=== PATIENT | male | born 1955 | race Caucasian/White ===

== ENCOUNTER 2016-10-18 20:17 | Inpatient (IN) | payer MEDICARE ==
[2016-10-18] MEDS ORDERED: Zithromax 500 MG/ 250 ML NaCl Premix 250 ML IV ONE ×2 (20:28→21:38)
[2016-10-18] MEDS ORDERED: ROCEPHIN 1 Gm-D5w 50 ml Bag** 50 ML IV ONE ×2 (20:28→20:57)
[2016-10-18] MEDS ORDERED: Sodium Chloride 0.9% 1000 ML 1,000 ML IV STA ×2 (20:28→20:41)
[2016-10-18] MEDS ORDERED: PROVENTIL 2.5 MG/3 ML NEB IH ONE ×2 (20:28→20:33)
[2016-10-18] MEDS ORDERED: TYLENOL 325 MG PO STA (20:31)
--- NOTE | 2016-10-18 20:40 | ERPHSYRPT ---
- History of Present Illness Time Seen by Provider: 10/18/16 20:25 Source: patient Exam Limitations: clinical condition Patient Subjective Stated Complaint: PT BROUGHT TO ED PER EMS FROM HOME-REPORTS INCREASED [id number] COUGH WITH GREEN SPUTUM-PT REPORTS CHRONIC BACK PAIN BUT DENIES ANY UNUSUAL PAIN Triage Nursing Assessment: PT PALE WARM ET DRY-WHEEZES NOTED-LABORED BREATHING NOTED-ABLE TO SPEAK IN SHORT SENTENCES-PT WAS 86 SPO2 UPON EMS ARRIVAL Physician History: PATIENT WITH HISTORY OF COPD, COMPLAINS OF FEVER, CHILLS, PRODUCTIVE COUGH YELLOW SPUTUM, DIFFICULTY BREATHING AND MARKED EXERTIONAL DYSPNEA. ALSO HAS MID BACK PAIN. EMS STATES HIS PULSE OXIMETRY 88%. Timing/Duration: day(s) Activities at Onset: none Severity of Dyspnea-Max: severe Severity of Dyspnea-Current: severe Possible Cause: occasional episodes Modifying Factors: Improves With: activity, coughing, oxygen Associated Symptoms: constant, cough, productive cough International travel in last 2 weeks: No Allergies/Adverse Reactions: No Known Drug Allergies Allergy (Unverified 10/18/16 20:29) Home Medications: Albuterol 8 gm Mdi Hfa [Ventolin Hfa MDI] 8 gm IH DAILY 10/18/16 [History] Hydrocodone/APAP 10/325 mg [[place] 10/325 MG Tablet] 1 tab PO Q4HPRN PRN [History] Lisinopril/Hydrochlorothiazide [Lisinopril-Hctz 10-12.5 mg Tab] 1 each PO DAILY 10/18/16 [History] Meclizine HCl 25 mg [Antivert 25 mg] 25 mg PO [id number] PRN 10/18/16 [ History] Hx Tetanus, Diphtheria Vaccination/Date Given: No Hx Influenza Vaccination/Date Given: No Hx Pneumococcal Vaccination/Date Given: No Immunizations Up to Date: Yes - Review of Systems Constitutional: No Fever, No Chills Eyes: No Symptoms Ears, Nose, & Throat: No Symptoms Respiratory: Cough, Dyspnea Cardiac: No Symptoms, No Chest Pain, No Edema, No Syncope Abdominal/Gastrointestinal: No Symptoms, No Abdominal Pain, No Nausea, No Vomiting, No Diarrhea Genitourinary Symptoms: No Symptoms, No Dysuria Musculoskeletal: No Symptoms, No Back Pain, No Neck Pain Skin: No Symptoms, No Rash Neurological: No Dizziness, No Focal Weakness, No Sensory Changes Psychological: No Symptoms Endocrine: No Symptoms All Other Systems: Reviewed and Negative - Past Medical History Pertinent Past Medical History: Yes Respiratory History: COPD Other Medical History: BACK PAIN - Past Surgical History Past Surgical History: No - Social History Smoking Status: Former smoker Drug Use: none Patient Lives Alone: Yes - Nursing Vital Signs Nursing Vital Signs: Initial Vital Signs Temperature 97.7 F Temperature Source Oral Pulse Rate 83 Respiratory Rate 24 Blood Pressure [Right Arm] 129/68 Pain Intensity 5 - Physical Exam General Appearance: no apparent distress, mild distress, alert Eye Exam: PERRL/EOMI Ears, Nose, Throat Exam: hearing grossly normal Neck Exam: normal inspection, supple Respiratory Exam: diminished breath sounds, wheezing Cardiovascular/Chest Exam: normal heart sounds, regular rate/rhythm Abdominal/Gastrointestinal Exam: soft, No tenderness, No distention, No mass Extremity Exam: non-tender, normal range of motion, normal inspection, no calf tenderness, no pedal edema Peripheral Pulses Exam: carotid (R): 2+, carotid (L): 2+, femoral (R): 2+, femoral (L): 2+, dorsalis-pedis (R): 2+, dorsalis-pedis (L): 2+ Neurologic Exam: alert, oriented x 3, cooperative, reporting lead II-XII nml as tested, sensation nml, No motor deficits Skin Exam: normal color, warm, No dry SpO2 Interpretation: normal SpO2: 98 Oxygen Delivery: Room Air - Course EKG Interpreted by Me: RATE, Sinus Rhythm, Sinus Tach, Right [place] Deviation - Radiology Exams Chest X-ray Interpretation: Interpreted by me (RIGHT MIDDLE/LOWER LOBE INFILTRATES) - CT Exams Chest CT Interpretation: Tele-radiologist Report (NEGATIVE FOR PULMONARY EMBOLISM, THERE IS DIFFUSE CENTRILOBULAR EMPHYSEMATOUS CHANGES, RIGHT MIDDLE AND BILATERAL LOWER LOBE RETICULAR -NODULAR DENSITIES) Ordered Tests: Medication Summary Discontinued Medications Generic Name Dose Route Start Last Admin Trade Name Eusebioq PRN Reason Stop Dose Admin Acetaminophen 650 mg 10/18/16 20:31 10/18/16 20:59 Tylenol 325 Mg PO 10/18/16 20:32 650 mg STAT STA Administration Acetaminophen Confirm 10/18/16 20:57 Tylenol 325 Mg Administered 10/18/16 20:58 Dose 650 mg .ROUTE .STK-MED ONE Acetaminophen 650 mg 10/18/16 23:02 Tylenol 325 Mg PO 11/17/16 23:01 Q4H PRN PRN PAIN AND/OR FEVER Acetaminophen/Hydrocodone Bitart 1 tab 10/19/16 09:16 10/20/16 19:32 [place] 10/325 Mg Tablet PO 10/24/16 09:15 1 tab Q4HPRN PRN Administration PAIN Albuterol Sulfate 10 mg 10/18/16 20:28 10/18/16 20:44 Proventil 2.5 Mg/3 Ml Neb IH 10/18/16 20:29 10 mg STAT ONE Administration Albuterol Sulfate Confirm 10/18/16 20:33 Proventil 2.5 Mg/3 Ml Neb Administered 10/18/16 20:34 Dose 10 mg IH .STK-MED ONE Albuterol/Ipratropium 3 ml 10/19/16 07:00 10/21/16 14:43 Duoneb 0.5-3 Mg/3 Ml Neb IH 11/18/16 06:59 3 ml Q4HRT ARMAAN Administration Lisinopril 10 mg/ 0 mg 10/19/16 10:00 10/21/16 10:31 Hydrochlorothiazide 12.5 mg PO 11/18/16 09:59 22.5 mg DAILY ARMAAN Administration Enoxaparin Sodium 40 mg 10/19/16 10:00 10/21/16 10:35 Enoxaparin Sodium SQ 11/18/16 09:59 40 mg DAILY ARMAAN Administration Famotidine 20 mg 10/19/16 10:00 10/21/16 10:31 Pepcid 20 Mg PO 11/18/16 09:59 20 mg BID ARMAAN Administration Azithromycin 250 mls @ 125 mls/hr 10/18/16 20:28 10/18/16 21:41 Zithromax 500 Mg/ 250 Ml Nacl Premix IV 10/18/16 22:27 125 mls/hr STAT ONE Administration Ceftriaxone Sodium/Dextrose 50 mls @ 100 mls/hr 10/18/16 20:28 10/18/16 20:59 Rocephin 1 Gm-D5w 50 Ml Bag IV 10/18/16 20:57 100 mls/hr STAT ONE Administration Sodium Chloride 1,000 mls @ 999 mls/hr 10/18/16 20:28 10/18/16 20:59 Sodium Chloride 0.9% 1000 Ml IV 10/18/16 21:28 999 mls/hr .Q1H1M STA Administration Sodium Chloride 1,000 mls @ 999 mls/hr 10/18/16 20:41 10/18/16 21:53 Sodium Chloride 0.9% 1000 Ml IV 10/18/16 21:41 999 mls/hr .Q1H1M STA Administration Sodium Chloride Confirm 10/18/16 20:57 Sodium Chloride 0.9% 1000 Ml Administered 10/18/16 20:58 Dose 1,000 mls @ ud .ROUTE .STK-MED ONE Ceftriaxone Sodium/Dextrose Confirm 10/18/16 20:57 Rocephin 1 Gm-D5w 50 Ml Bag Administered 10/18/16 20:58 Dose 50 mls @ ud IV .STK-MED ONE Azithromycin Confirm 10/18/16 21:38 Zithromax 500 Mg/ 250 Ml Nacl Premix Administered 10/18/16 21:39 Dose 250 mls @ ud IV .STK-MED ONE Sodium Chloride Confirm 10/18/16 21:39 Sodium Chloride 0.9% 1000 Ml Administered 10/18/16 21:40 Dose 1,000 mls @ ud .ROUTE .STK-MED ONE Sodium Chloride Confirm 10/18/16 21:53 Sodium Chloride 0.9% 1000 Ml Administered 10/18/16 21:54 Dose 1,000 mls @ ud .ROUTE .STK-MED ONE Ceftriaxone Sodium/Dextrose 50 mls @ 100 mls/hr 10/19/16 22:00 10/20/16 21:03 Rocephin 1 Gm-D5w 50 Ml Bag IV 11/18/16 21:59 100 mls/hr Q24H22 ARMAAN Administration Azithromycin 250 mls @ 125 mls/hr 10/19/16 22:00 10/20/16 21:11 Zithromax 500 Mg/ 250 Ml Nacl Premix IV 11/18/16 21:59 125 mls/hr Q24H22 ARMAAN Administration Sodium Chloride 1,000 mls @ 150 mls/hr 10/18/16 23:00 10/19/16 06:27 Sodium Chloride 0.9% 1000 Ml IV 11/17/16 22:59 150 mls/hr .Q6H40M ARMAAN Administration Sodium Chloride 500 mls @ 450 mls/hr 10/18/16 23:06 10/18/16 23:08 Sodium Chloride 0.9% 500 Ml IV 10/19/16 00:12 450 mls/hr .Q1H7M ONE Administration Sodium Chloride Confirm 10/18/16 23:06 Sodium Chloride 0.9% 500 Ml Administered 10/18/16 23:07 Dose 500 mls @ ud IV .STK-MED ONE Levalbuterol HCl 1.25 mg 10/18/16 23:04 Xopenex 1.25 Mg/0.5 Ml Ud Nebule IH 11/17/16 23:03 Q2HPRN PRN DIFF BREATHING Methylprednisolone Sodium Succinate 80 mg 10/19/16 00:00 10/20/16 05:44 Solu-Medrol 125 Mg IV 11/18/16 00:00 80 mg Q6HT ARMAAN Administration Oseltamivir Phosphate 75 mg 10/18/16 22:48 10/18/16 23:03 Tamiflu 75mg Capsule PO 10/18/16 22:49 75 mg STAT ONE Administration Oseltamivir Phosphate Confirm 10/18/16 22:56 Tamiflu 75mg Capsule Administered 10/18/16 22:57 Dose 75 mg PO .STK-MED ONE Oseltamivir Phosphate 75 mg 10/19/16 10:00 10/21/16 10:33 Tamiflu 75mg Capsule PO 10/24/16 09:59 75 mg BID ARMAAN Administration Patient Own Med: 2 each 10/19/16 10:00 10/21/16 07:25 Symbicort Inh IH 11/18/16 09:59 2 each BID ARMAAN Administration Pneumococcal Polyvalent Vaccine 0.5 ml 10/20/16 10:00 10/20/16 09:39 Pneumovax 23 IM 10/20/16 10:01 0.5 ml .ONCE ONE Administration Prednisone 60 mg 10/20/16 10:00 10/21/16 10:33 Deltasone 20 Mg PO 11/19/16 09:59 60 mg DAILY ARMAAN Administration Fluticasone/Salmeterol 2 puff 10/19/16 07:00 Advair Hfa 230/21 Mcg Common Canister* IH 11/18/16 06:59 BIDRT [facility] Lab/Rad Data: Laboratory Result Diagrams 10/19/16 05:15 10/18/16 20:40 Laboratory Results 10/19/16 10/18/16 10/18/16 Range/Units 05:15 21:30 20:40 WBC 5.8 (4.0-10.5) K/mm3 RBC 4.92 (4.1-5.6) M/mm3 Hgb 14.4 (12.5-18.0) gm/dl Hct 44.3 (42-50) % MCV 90.0 (78-100) fl MCH 29.3 (26-32) pg MCHC 32.5 (32-36) g/dl RDW 15.8 H (11.5-14.0) % Plt Count 148 L (150-450) K/mm3 MPV 10.5 H (6-9.5) fl Segmented Neutrophils (36.-66.) % Lymphocytes (Manual) (24-44) % Monocytes (Manual) (0.0-12.0) % Differential Comment Atypical Lymphocytes % Platelet Estimate (NORMAL) INR (0.8-3.0) D-Dimer (0.00-0.49) mg/L Sodium 136 (136-145) mEq/L Potassium 4.3 (3.5-5.1) mEq/L Chloride 100 (98-107) mEq/L Carbon Dioxide 21.0 (21-32) mEq/L Anion Gap 19.1 H (5-15) MEQ/L BUN 29 H (9-20) mg/dL Creatinine 1.13 (0.55-1.30) mg/dl Estimated GFR > 60 ML/MIN Glucose 124 H (70-110) MG/DL Lactic Acid (0.4-2.0) Calcium 8.7 (8.5-10.1) mg/dL Magnesium 2.0 (1.8-2.4) mg/dL Total Bilirubin 0.7 (0.2-1.0) mg/dL AST 53 H (15-37) U/L ALT 29 (12-78) U/L Alkaline Phosphatase 64 (46-116) U/L Troponin I 0.027 (0.000-0.056) ng/ml Serum Total Protein 7.7 (6.4-8.2) gm/dL Albumin 3.4 (3.4-5.0) g/dL Ur Collection Type CLEAN CATCH Urine Color JAMES (YELLOW) Urine Appearance SLIGHTLY CLOUDY (CLEAR) Urine pH 5.5 (5-6) Ur Specific [place] 1.020 (1.005-1.025) Urine Protein 100 (Negative) Urine Glucose (UA) NEGATIVE (NEGATIVE) mg/dL Urine Ketones >=160 (NEGATIVE) Urine Nitrite NEGATIVE (NEGATIVE) Urine Bilirubin MODERATE (NEGATIVE) Urine Urobilinogen 4 (0-1) mg/dL Urine WBC (Auto) NEGATIVE (NEGATIVE) Urine RBC (Auto) TRACE HEMOLYZED (0-5) Buck/ul Urine Microscopic WBC 0-2 (0-5) /HPF Ur Epithelial Cells FEW (FEW) /HPF Urine Bacteria MODERATE (NEGATIVE) /HPF Hyaline Casts 2-5 (0-2) /LPF Granular Casts 10-25 (NEGATIVE) /LPF Urine Mucus MODERATE (NEGATIVE) /HPF Influenza Type A Ag (NEGATIVE) Influenza Type B Ag (NEGATIVE) RSV (PCR) (Negative) Specimen Received 10/18/16:2130 10/18/16 10/18/16 10/18/16 Range/Units 20:40 20:35 20:28 WBC 7.6 (4.0-10.5) K/mm3 RBC 5.46 (4.1-5.6) M/mm3 Hgb 16.0 (12.5-18.0) gm/dl Hct 48.0 (42-50) % MCV 87.9 (78-100) fl MCH 29.3 (26-32) pg MCHC 33.3 (32-36) g/dl RDW 15.5 H (11.5-14.0) % Plt Count 159 (150-450) K/mm3 MPV 10.7 H (6-9.5) fl Segmented Neutrophils 61 (36.-66.) % Lymphocytes (Manual) 25 (24-44) % Monocytes (Manual) 9 (0.0-12.0) % Differential Comment NORMAL Atypical Lymphocytes 5 % Platelet Estimate NORMAL (NORMAL) INR 1.17 (0.8-3.0) D-Dimer 0.920 H* (0.00-0.49) mg/L Sodium (136-145) mEq/L Potassium (3.5-5.1) mEq/L Chloride (98-107) mEq/L Carbon Dioxide (21-32) mEq/L Anion Gap (5-15) MEQ/L BUN (9-20) mg/dL Creatinine (0.55-1.30) mg/dl Estimated GFR ML/MIN Glucose (70-110) MG/DL Lactic Acid 1.5 (0.4-2.0) Calcium (8.5-10.1) mg/dL Magnesium (1.8-2.4) mg/dL Total Bilirubin (0.2-1.0) mg/dL AST (15-37) U/L ALT (12-78) U/L Alkaline Phosphatase (46-116) U/L Troponin I (0.000-0.056) ng/ml Serum Total Protein (6.4-8.2) gm/dL Albumin (3.4-5.0) g/dL Ur Collection Type Urine Color (YELLOW) Urine Appearance (CLEAR) Urine pH (5-6) Ur Specific [place] (1.005-1.025) Urine Protein (Negative) Urine Glucose (UA) (NEGATIVE) mg/dL Urine Ketones (NEGATIVE) Urine Nitrite (NEGATIVE) Urine Bilirubin (NEGATIVE) Urine Urobilinogen (0-1) mg/dL Urine WBC (Auto) (NEGATIVE) Urine RBC (Auto) (0-5) Buck/ul Urine Microscopic WBC (0-5) /HPF Ur Epithelial Cells (FEW) /HPF Urine Bacteria (NEGATIVE) /HPF Hyaline Casts (0-2) /LPF Granular Casts (NEGATIVE) /LPF Urine Mucus (NEGATIVE) /HPF Influenza Type A Ag (NEGATIVE) Influenza Type B Ag (NEGATIVE) RSV (PCR) (Negative) Specimen Received 10/18/16 Range/Units 20:20 WBC (4.0-10.5) K/mm3 RBC (4.1-5.6) M/mm3 Hgb (12.5-18.0) gm/dl Hct (42-50) % MCV (78-100) fl MCH (26-32) pg MCHC (32-36) g/dl RDW (11.5-14.0) % Plt Count (150-450) K/mm3 MPV (6-9.5) fl Segmented Neutrophils (36.-66.) % Lymphocytes (Manual) (24-44) % Monocytes (Manual) (0.0-12.0) % Differential Comment Atypical Lymphocytes % Platelet Estimate (NORMAL) INR (0.8-3.0) D-Dimer (0.00-0.49) mg/L Sodium (136-145) mEq/L Potassium (3.5-5.1) mEq/L Chloride (98-107) mEq/L Carbon Dioxide (21-32) mEq/L Anion Gap (5-15) MEQ/L BUN (9-20) mg/dL Creatinine (0.55-1.30) mg/dl Estimated GFR ML/MIN Glucose (70-110) MG/DL Lactic Acid (0.4-2.0) Calcium (8.5-10.1) mg/dL Magnesium (1.8-2.4) mg/dL Total Bilirubin (0.2-1.0) mg/dL AST (15-37) U/L ALT (12-78) U/L Alkaline Phosphatase (46-116) U/L Troponin I (0.000-0.056) ng/ml Serum Total Protein (6.4-8.2) gm/dL Albumin (3.4-5.0) g/dL Ur Collection Type Urine Color (YELLOW) Urine Appearance (CLEAR) Urine pH (5-6) Ur Specific [place] (1.005-1.025) Urine Protein (Negative) Urine Glucose (UA) (NEGATIVE) mg/dL Urine Ketones (NEGATIVE) Urine Nitrite (NEGATIVE) Urine Bilirubin (NEGATIVE) Urine Urobilinogen (0-1) mg/dL Urine WBC (Auto) (NEGATIVE) Urine RBC (Auto) (0-5) Buck/ul Urine Microscopic WBC (0-5) /HPF Ur Epithelial Cells (FEW) /HPF Urine Bacteria (NEGATIVE) /HPF Hyaline Casts (0-2) /LPF Granular Casts (NEGATIVE) /LPF Urine Mucus (NEGATIVE) /HPF Influenza Type A Ag NEGATIVE (NEGATIVE) Influenza Type B Ag POSITIVE (NEGATIVE) RSV (PCR) NEGATIVE (Negative) Specimen Received - Progress Progress: improved Progress Note: 10/18/16 20:37 PATIENT GIVEN IV SOLUMEDROL 125MG PER EMS ENROUTE TO EMERGENCY. PLACED ONTO SEPSIS PROTOCOL IV NORMAL SALINE 85KG/30MG-2500ML TO BEGIN AT 2034 VIA 2 PERIPHERAL SITES, AFTER 2 SETS OF BLOOD CULTURES, ROCEPHIN 1GM AND ZITHROMAX 500MG IVPB 10/18/16 22:52- GIVEN TAMIFLU 75MG ORALLY FOR INFLUENZA D Blood Culture(s) Obtained: Yes Antibiotics given: Yes (ROCEPHIN 1GM, ZITHROMAX 500MG IVPB) Discussed with DrSven: Miguel Will see patient in: hospital (observation) (AT 2250 FOR ADMISSION) - Departure Time of Disposition: 23:30 Departure Disposition: In-patient Admission Clinical Impression: PNEUMONIA WITH SEPSIS, EXACERBATION COPD, INFLUENZA B Condition: Stable Critical Care Time: No
[2016-10-18 20:50] LABS: Mean Cell Volume 87.9 fl (78-100); Mean Corpuscular Hemoglobin 29.3 pg (26-32); Mean Platelet Volume 10.7 fl (6-9.5); Platelet Count 159 K/mm3 (150-450); Red Blood Count 5.46 M/mm3 (4.1-5.6); Red Cell Distribution Width 15.5 % (11.5-14.0); White Blood Count 7.6 K/mm3 (4.0-10.5)
[2016-10-18] MEDS ORDERED: TYLENOL 325 MG ONE (20:57)
[2016-10-18] MEDS ORDERED: Sodium Chloride 0.9% 1000 ML 1,000 ML ONE ×2 (20:57→21:39)
[2016-10-18 21:07] LABS: INR 1.17 (0.8-3.0)
[2016-10-18 21:14] LABS: ALBUMIN 3.4 g/dL (3.4-5.0); ALKALINE PHOSPHATASE 64 U/L (46-116); ANION GAP 19.1 MEQ/L (5-15); BILIRUBIN,TOTAL 0.7 mg/dL (0.2-1.0); BLOOD UREA NITROGEN 29 mg/dL (9-20); CHLORIDE 100 mEq/L (98-107); Glucose 124 MG/DL (70-110); Potassium 4.3 mEq/L (3.5-5.1); SGOT/AST 53 U/L (15-37); SGPT/ALT 29 U/L (12-78); SODIUM 136 mEq/L (136-145); TROPONIN 0.027 ng/ml (0.000-0.056); Total Protein 7.7 gm/dL (6.4-8.2)
[2016-10-18] MEDS ORDERED: Sodium Chloride 0.9% 1000 ML 2,000 ML ONE (21:53)
[2016-10-18 21:54] LABS: COMPLETE URINE MICROSCOPIC? YES; Collection Type CLEAN CATCH; Ph 5.5 (5-6)
[2016-10-18 22:01] LABS: Bacteria MODERATE /HPF (NEGATIVE); Epithelial Cells FEW /HPF (FEW); Mucus MODERATE /HPF (NEGATIVE); WBC 0-2 /HPF (0-5)
[2016-10-18 22:07] LABS: ATYPICAL LYMPHS 5 %; Platelet Estimate NORMAL (NORMAL); Total Cells Counted 100
[2016-10-18] MEDS ORDERED: Tamiflu 75MG Capsule PO ONE ×2 (22:48→22:56)
[2016-10-18] MEDS ORDERED: TYLENOL 325 MG PO PRN (23:02)
[2016-10-18] MEDS ORDERED: Xopenex 1.25 MG/0.5 ML UD NEBULE IH PRN (23:04)
[2016-10-18] MEDS ORDERED: Sodium Chloride 0.9% 500 ML 500 ML IV ONE ×2 (23:06)
[2016-10-18] MEDS: Sodium Chloride 0.9% 1000 ML 1,000 ML IV SCH (23:43)
[2016-10-18] MEDS: solu-MEDROL 125 MG IV SCH (23:54)
[2016-10-19 05:36] LABS: Mean Corpuscular Hemoglobin 29.3 pg (26-32); Mean Platelet Volume 10.5 fl (6-9.5); Platelet Count 148 K/mm3 (150-450); Red Blood Count 4.92 M/mm3 (4.1-5.6); Red Cell Distribution Width 15.8 % (11.5-14.0); White Blood Count 5.8 K/mm3 (4.0-10.5)
[2016-10-19] MEDS: Sodium Chloride 0.9% 1000 ML 1,000 ML IV SCH (06:27)
[2016-10-19] MEDS: solu-MEDROL 125 MG IV SCH ×3 (06:28→18:05)
[2016-10-19] MEDS ORDERED: Advair Hfa 230/21 Mcg COMMON CANISTER IH SCH (07:00)
[2016-10-19] MEDS: DUONEB 0.5-3 MG/3 ml Neb IH SCH ×5 (07:20→23:40)
[2016-10-19] MEDS: PATIENT OWN MEDICATION IH SCH ×2 (07:20→19:39)
--- NOTE | 2016-10-19 08:22 | PCM.HP ---
History of Present Illness - Chief Complaint Chief Complaint: influzena B, COPD Date: 10/19/16 History of Present Illness: is a 61 year old male. began feeling sick 5 days ago at home with fever coughing weakness and fatigue. He had diarrhea as well no vomiting. He was very short of breath and enentually asked his son to bring him to the hospital. He feels a little better this am still very short of breath and weak coughing nonstop. no hemoptysis. No flu vaccine this year. - Review of Systems Constitutional: Fever, Chills, Fatigue, Weakness Eyes: No Symptoms Ears, Nose, & Throat: No Symptoms Respiratory: Cough, Short Of Breath, Wheezing Cardiac: No Chest Pain, No Edema, No Syncope Abdominal/Gastrointestinal: No Abdominal Pain, No Nausea, No Vomiting, No Diarrhea Genitourinary Symptoms: No Dysuria Musculoskeletal: Arthralgias, Back Pain, No Neck Pain Skin: No Rash Neurological: No Dizziness, No Focal Weakness, No Sensory Changes Psychological: No Symptoms Endocrine: No Symptoms Hematologic/Lymphatic: No Symptoms Immunological/Allergic: No Symptoms Medications & Allergies Home Medications: Home Medication List Albuterol 8 gm Mdi Hfa [Ventolin Hfa MDI] 8 gm IH DAILY 10/18/16 [History Confirmed 10/18/16] Hydrocodone/APAP 10/325 mg [[place] 10/325 MG Tablet] 1 tab PO UD 10/18/16 [ History Confirmed 10/18/16] Lisinopril/Hydrochlorothiazide [Lisinopril-Hctz 10-12.5 mg Tab] 1 each PO DAILY 10/18/16 [History Confirmed 10/18/16] Meclizine HCl 25 mg [Antivert 25 mg] 25 mg PO [id number] PRN 10/18/16 [ History Confirmed 10/18/16] Allergies/Adverse Reactions: Allergies Allergy/AdvReac Type Severity Reaction Status Date / Time No Known Drug Allergies Allergy Unverified 10/18/16 20:29 - Past Medical History Past Medical History: Yes Respiratory History: COPD Comment: BACK PAIN - Past Surgical History Past Surgical History: No - Social History Smoking Status: Former smoker How long have you smoked: 40 yrs Exposure to second hand smoke: Yes Alcohol: None Drug Use: none - Physical Exam Vital Signs: Vital Signs - 24 hr Temp Pulse Resp BP Pulse Ox 10/19/16 07:18 97.7 F 83 24 129/68 97 10/19/16 05:43 83 32 H 97 10/19/16 04:00 97.8 F 83 32 H 139/86 97 10/18/16 23:45 98.5 F 107 H 28 H 130/60 97 Oxygen-Last 24 hours O2 Percentage 5 Liters = 40% O2 Percentage 5 Liters = 40% O2 Percentage 5 Liters = 40% General Appearance: no apparent distress, mild distress, alert Neurologic Exam: alert, oriented x 3, cooperative, normal mood/affect, nml cerebellar function, nml station & gait, sensation nml, No motor deficits Eye Exam: PERRL/EOMI, eyes nml inspection Ears, Nose, Throat Exam: normal ENT inspection, TMs normal, pharynx normal, moist mucous membranes Neck Exam: normal inspection, non-tender, supple, full range of motion Respiratory Exam: prolonged expirations (on 5L nc O2), crackles/rales, rhonchi, wheezing Cardiovascular Exam: regular rate/rhythm, normal heart sounds, normal peripheral pulses Gastrointestinal/Abdomen Exam: soft, normal bowel sounds, No tenderness, No mass Back Exam: normal inspection, normal range of motion, No CVA tenderness, No vertebral tenderness Extremity Exam: normal inspection, normal range of motion, pelvis stable Skin Exam: normal color, warm, dry, No rash Lymphatic Exam: No adenopathy Results - Labs Lab/Micro Results: Lab Results-Last 24 Hours 10/19/16 Range/Units 05:15 WBC 5.8 (4.0-10.5) K/mm3 RBC 4.92 (4.1-5.6) M/mm3 Hgb 14.4 (12.5-18.0) gm/dl Hct 44.3 (42-50) % MCV 90.0 (78-100) fl MCH 29.3 (26-32) pg MCHC 32.5 (32-36) g/dl RDW 15.8 H (11.5-14.0) % Plt Count 148 L (150-450) K/mm3 MPV 10.5 H (6-9.5) fl - Other Procedures and Tests Respiratory Therapy 10/18/16 22:59 Oxygen NASAL CANNULA 2 lpm 10/19/16 05:45 neb [Respiratory Nebulizer] Q4H 10/19/16 05:46 Respiratory MDI BID Assessment/Plan (1) Influenza B Current Visit: Yes Status: Acute Assessment & Plan: continue tamiflu continue nebs steroid ceftriaxone and azithromycin lovenox for ppx pepcid for gi ppx on steroids reseal fluilds encourage po Code(s): J10.1 - FLU DUE TO OTH IDENT INFLUENZA VIRUS W OTH RESP MANIFEST (2) Influenzal bronchopneumonia Current Visit: Yes Status: Acute Code(s): J11.08 - FLU DUE TO UNIDENTIFIED FLU VIRUS W SPECIFIED PNEUMONIA; J12.89 - OTHER VIRAL PNEUMONIA (3) COPD with acute exacerbation Current Visit: Yes Status: Acute Code(s): J44.1 - CHRONIC OBSTRUCTIVE PULMONARY DISEASE W (ACUTE) EXACERBATION (4) Pulmonary nodule Current Visit: Yes Status: Chronic Code(s): R91.1 - SOLITARY PULMONARY NODULE (5) Essential hypertension Current Visit: Yes Status: Chronic Code(s): I10 - ESSENTIAL (PRIMARY) HYPERTENSION
--- NOTE | 2016-10-19 09:03 | XRAY ---
Indication: Cough and dyspnea. Comparison: None Portable chest demonstrates bilateral upper lung emphysema. Asymmetric right mid to lower lung infiltrate versus atelectasis. No consolidation or large effusion. Heart is not enlarged. Bony thorax intact with mild osteopenia. Impression: 1. Right mid to lower lung infiltrate/atelectasis. 2. COPD.
--- NOTE | 2016-10-19 09:08 | XRAY ---
Indication: Productive cough, dyspnea, and low oxygenation. COPD. Multiple contiguous axial images obtained through the chest using 80 cc Isovue 370 contrast and PE protocol. Comparison: None There is adequate opacification of the pulmonary arteries. No filling defect or pulmonary embolus. Heart is not enlarged. Aorta mildly arteriosclerotic without aneurysm/dissection. A few right hilar calcified nodes. No pathologic mediastinal/hilar lymphadenopathy. Examination of lung parenchyma demonstrates extensive pulmonary emphysema predominantly in the mid to upper lung zones bilaterally as well as scattered fibrosis/scarring. Subtle tree-in-bud opacities in the right middle and right lower lobes favoring inflammatory process. No consolidation or large effusion. In the anterior left lung base, there is a 1.3 cm irregular noncalcified parenchymal opacity. 7 mm noncalcified nodularity seen in the peripheral right upper lobe (image 28, series 4). Smaller 5 mm noncalcified nodule also in the inferior right upper lobe (image 32, series 4). 2-3 mm noncalcified nodule in the peripheral right middle lobe (image 34, series 4). Limited upper abdomen demonstrates mild fatty liver. Bony thorax demonstrates multilevel spinal vertebral hemangiomas. Superior T11 segment demonstrates minimal concave deformity, either Schmorl node versus old injury. Impression: 1. Negative for pulmonary embolus. Diffuse pulmonary emphysema. 2. Right middle and right lower lobe subtle tree-in-bud opacities favoring underlying inflammatory process. 3. Indeterminate left lung base irregular opacity and tiny noncalcified nodularities in the right lung. Comparison to older studies would be of benefit. Micronodules may be too small for PET/CT. Recommend follow-up per Fleischner guidelines. 4. Fatty liver. 5. T11 superior endplate concave deformity, Schmorl node versus old injury. Comment: Preliminary interpretation was made by C. No critical discrepancy. CT DI 15.83
[2016-10-19] MEDS: Zestril 10 MG*** 10 MG, hydroDIURIL 25 MG*** 12.5 MG PO SCH ×2 (10:49)
[2016-10-19] MEDS: ENOXAPARIN SODIUM SQ SCH (10:49)
[2016-10-19] MEDS: Tamiflu 75MG Capsule PO SCH ×2 (10:50→22:09)
[2016-10-19] MEDS: Pepcid 20 MG PO SCH ×2 (10:50→22:09)
[2016-10-19] MEDS: ROCEPHIN 1 Gm-D5w 50 ml Bag** 50 ML IV SCH (22:09)
[2016-10-19] MEDS: Zithromax 500 MG/ 250 ML NaCl Premix 250 ML IV SCH (22:51)
[2016-10-20] MEDS: solu-MEDROL 125 MG IV SCH ×2 (00:07→05:44)
[2016-10-20] MEDS: Norco 10/325 MG Tablet PO PRN ×2 (01:11→19:32)
[2016-10-20] MEDS: DUONEB 0.5-3 MG/3 ml Neb IH SCH ×6 (03:30→22:57)
[2016-10-20] MEDS: PATIENT OWN MEDICATION IH SCH ×2 (06:38→19:09)
--- NOTE | 2016-10-20 08:15 | PCM.NOTE ---
Date and Time: 10/20/16812 Subjective Assessment: feeling a little better eating more still very weak breathing improving some still coughing nonproductive. no swelling no chest pain Objective Exam General Appearance: no apparent distress, alert Neurologic Exam: alert, oriented x 3, cooperative, normal mood/affect, nml cerebellar function, sensation nml, No motor deficits Skin Exam: normal color, warm, dry Eye Exam: PERRL, EOMI, eyes nml inspection Ears, Nose, Throat Exam: normal ENT inspection, pharynx normal, moist mucous membranes Neck Exam: normal inspection, non-tender, supple, full range of motion Respiratory Exam: prolonged expirations (pursed lip breathing), rhonchi Cardiovascular Exam: regular rate/rhythm, normal heart sounds Gastrointestinal/Abdomen Exam: soft, No tenderness, No mass Extremity Exam: normal inspection, normal range of motion Back Exam: normal inspection, normal range of motion, No CVA tenderness, No vertebral tenderness Male Genitalia Exam: deferred Rectal Exam: deferred OBJECTIVE DATA Vital Signs: Vital Signs - 24 hr Temp Pulse Resp BP Pulse Ox 10/20/16 07:23 97.9 F 88 22 170/81 93 L 10/20/16 06:38 72 18 95 10/20/16 04:00 97.6 F 71 19 129/57 94 L 10/20/16 03:30 71 19 94 L 10/19/16 23:52 98.8 F 75 22 104/51 98 10/19/16 23:41 75 22 98 10/19/16 20:00 98.3 F 89 36 H 125/62 93 L 10/19/16 19:39 89 36 H 93 L 10/19/16 16:48 98.4 F 83 24 123/74 94 L 10/19/16 15:00 85 22 93 L 10/19/16 11:07 81 16 93 L 10/19/16 10:52 98 F 88 22 132/66 88 L 10/19/16 08:58 80 20 96 Oxygen-Last 24 hours O2 Percentage 2 Liters = 28% O2 Percentage 3 Liters = 32% O2 Percentage 3 Liters = 32% O2 Percentage 3 Liters = 32% O2 Percentage 3 Liters = 32% O2 Percentage 5 Liters = 40% Pain Assessment - Last Documented Pain Intensity 7 Pain Scale Used 0-10 Pain Scale Intake and Output: Intake & Output 10/17/16 10/18/16 10/19/16 10/20/16 11:59 11:59 11:59 11:59 Intake Total 360 1490 Output Total 800 440 Balance -440 1050 Weight 79.061 kg Assessment/Plan (1) Influenza B Current Visit: Yes Status: Acute Assessment & Plan: will continue tamiflu continue abx with copd exacerbation and acute respiratory failure wean steroids to prednisone 60 mg po continue lovenox and pepcid for ppx continue treatments wean O2 asd tolerated increase activity as tolerated Code(s): J10.1 - FLU DUE TO OTH IDENT INFLUENZA VIRUS W OTH RESP MANIFEST (2) Influenzal bronchopneumonia Current Visit: Yes Status: Acute Code(s): J11.08 - FLU DUE TO UNIDENTIFIED FLU VIRUS W SPECIFIED PNEUMONIA; J12.89 - OTHER VIRAL PNEUMONIA (3) COPD with acute exacerbation Current Visit: Yes Status: Acute Code(s): J44.1 - CHRONIC OBSTRUCTIVE PULMONARY DISEASE W (ACUTE) EXACERBATION (4) Pulmonary nodule Current Visit: Yes Status: Chronic Code(s): R91.1 - SOLITARY PULMONARY NODULE (5) Essential hypertension Current Visit: Yes Status: Chronic Code(s): I10 - ESSENTIAL (PRIMARY) HYPERTENSION (6) Acute hypoxemic respiratory failure Current Visit: Yes Status: Acute Code(s): J96.01 - ACUTE RESPIRATORY FAILURE WITH HYPOXIA
[2016-10-20] MEDS: DELTASONE 20 MG PO SCH (09:33)
[2016-10-20] MEDS: Zestril 10 MG*** 10 MG, hydroDIURIL 25 MG*** 12.5 MG PO SCH ×2 (09:33)
[2016-10-20] MEDS: Pepcid 20 MG PO SCH ×2 (09:34→21:03)
[2016-10-20] MEDS: Tamiflu 75MG Capsule PO SCH ×2 (09:36→21:03)
[2016-10-20] MEDS: ENOXAPARIN SODIUM SQ SCH (09:36)
[2016-10-20] MEDS ORDERED: PNEUMOVAX 23 IM ONE (10:00)
[2016-10-20] MEDS: ROCEPHIN 1 Gm-D5w 50 ml Bag** 50 ML IV SCH (21:03)
[2016-10-20] MEDS: Zithromax 500 MG/ 250 ML NaCl Premix 250 ML IV SCH (21:11)
[2016-10-21] MEDS: DUONEB 0.5-3 MG/3 ml Neb IH SCH ×4 (03:00→14:43)
[2016-10-21] MEDS: PATIENT OWN MEDICATION IH SCH (07:25)
[2016-10-21] MEDS: Pepcid 20 MG PO SCH (10:31)
[2016-10-21] MEDS: Zestril 10 MG*** 10 MG, hydroDIURIL 25 MG*** 12.5 MG PO SCH ×2 (10:31)
[2016-10-21] MEDS: Tamiflu 75MG Capsule PO SCH (10:33)
[2016-10-21] MEDS: DELTASONE 20 MG PO SCH (10:33)
[2016-10-21] MEDS: ENOXAPARIN SODIUM SQ SCH (10:35)
--- NOTE | 2016-10-21 11:22 | PCM.DS ---
Discharge Summary Date of Admission: 10/19/16 08:25 Admitting Physician: TEZ GONZALEZ Primary Care Provider: DIMA TAMAYO Allergies Allergies No Known Drug Allergies Allergy (Unverified 10/18/16 20:29) Hospital Summary - Hospital Course Hospital Course: Pt admitted with COPD exacerbation and influenza B. Has steadily improved, still on IV antibiotics but now on po prednisone. tolerating po well, up and about with no issues. still having some cough. Feels much better than at admission. Now on O2 4L NC and will be discharged home on same. He lives at home alone but his son can come check on him often. - Vitals & Intake/Output Vital Signs: Vital Signs Temperature 98.1 F 10/21/16 08:00 Pulse Rate 79 10/21/16 10:57 Respiratory Rate 18 10/21/16 10:57 Blood Pressure 176/82 10/21/16 08:00 O2 Sat by Pulse Oximetry 94 L 10/21/16 10:57 Oxygen-Last Documented O2 Percentage 3 Liters = 32% Intake & Output: Intake & Output 10/18/16 10/19/16 10/20/16 10/21/16 11:59 11:59 11:59 11:59 Intake Total 360 1970 1460 Output Total 800 640 850 Balance -440 1330 610 Weight 79.061 kg 78.744 kg - Lab Result Diagrams: 10/19/16 05:15 10/18/16 20:40 Discharge Exam General Appearance: no apparent distress Neurologic Exam: alert, oriented x 3, cooperative Skin Exam: normal color, warm, dry Neck Exam: normal inspection Respiratory Exam: diminished breath sounds, No crackles/rales, No rhonchi, No wheezing Cardiovascular Exam: regular rate/rhythm, normal heart sounds, No murmur Gastrointestinal/Abdomen Exam: soft, No tenderness Extremity Exam: No pedal edema, No swelling Final Diagnosis/Problem List - Final Discharge Diagnosis/Problem (1) Influenza B Current Visit: Yes Status: Acute Assessment & Plan: Home to finish up 5d course of tamiflu. (2) COPD with acute exacerbation Current Visit: Yes Status: Acute Assessment & Plan: home on po antibiotics and O2 per NC. (3) Hypoxemia Current Visit: Yes Status: Acute Assessment & Plan: 4L O2 NC currently. (4) Essential hypertension Current Visit: Yes Status: Chronic Assessment & Plan: One BP measured at 176 systolic; however all other BP in 130s-140s systolic and recheck 138/67. May have been the technique. Stable. (5) Pulmonary nodule Current Visit: Yes Status: Chronic Assessment & Plan: recheck outpatient as directed. - Discharge Disposition: Home, Self-Care Condition: Stable Prescriptions: New Amoxicillin/Potassium Clav [Augmentin 875-125 Tablet] 875 mg PO BID #24 tablet Albuterol/Ipratropium 3ml Neb* [DUONEB 0.5-3 MG/3 ml Neb] 3 ml IH QID #30 ampul.neb Prednisone 20 mg [Deltasone 20 mg] 20 mg PO DAILY #17 tablet Oseltamivir 75 mg [Tamiflu 75MG Capsule] 75 mg PO BID #5 cap Continue Hydrocodone/APAP 10/325 mg [[place] 10/325 MG Tablet] 1 tab PO Q4HPRN PRN PRN Reason: Pain Albuterol 8 gm Mdi Hfa [Ventolin Hfa MDI] 8 gm IH DAILY Lisinopril/Hydrochlorothiazide [Lisinopril-Hctz 10-12.5 mg Tab] 1 each PO DAILY Meclizine HCl 25 mg [Antivert 25 mg] 25 mg PO [id number] PRN PRN Reason: Nausea Follow up with: DIMA TAMAYO MD [Primary Care Provider] - Forms: Patient Portal Information
[2016-10-21 13:56] VITALS: BP 140/80
[2016-10-21 14:55] VITALS: PULSE 75
[2016-10-29 08:38] VITALS: O2SAT 98
== END 2016-10-21 17:02 | disposition home or self-care (01) | DRG 193 ==
LOC: ED 20:17 → MED SURG 23:19 → OBSVTOIN 10-19 08:25
PROVIDERS: ADMIT Family Medicine; ATTEND Family Medicine
DX: J10.1 Influenza due to other identified influenza virus with other respiratory manifestations (principal); J96.01 Acute respiratory failure with hypoxia; J44.1 Chronic obstructive pulmonary disease with (acute) exacerbation; R09.02 Hypoxemia; I10 Essential (primary) hypertension; R91.1 Solitary pulmonary nodule; Z79.899 Other long term (current) drug therapy; J11.08 Influenza due to unidentified influenza virus with specified pneumonia
CPT/HCPCS: 36415; 71010; 71260; 80053; 81000; 83605; 83735; 84484; 85025; 85027; 85379; 85610; 87040; 87631; 90732; 93005; 93041; 93268; 94640; 94760; 96360; 96361; 96365; 96367; 99285; G0378; J0456; J0696; J1650; J2930; A9270-GY; J7506

== ENCOUNTER 2020-12-03 11:56 | Inpatient (IN) | payer MEDICARE ==
--- NOTE | 2020-12-03 12:03 | ERPHSYRPT ---
- History of Present Illness Time Seen by Provider: 12/03/20 12:03 Source: patient, family, EMS Exam Limitations: no limitations Physician History: This is a 65-year-old white male patient of Dr. Ml Chadwick and head of sales and marketing Dr. Correa and presents to the emergency department via EMS service with shortness of breath. His room air oxygenation on arrival was 89 to 90%. Patient has significant COPD. He is not steroid-dependent and he is not oxygen dependent. His symptoms have been present for at least a week and has been worsening. Patient denies chest pain. He denies fever and chills. He does have a mild cough. He has had no nausea vomiting. He denies abdominal pain. Timing/Duration: week(s) (one), worse Activities at Onset: activity Severity of Dyspnea-Max: moderate Severity of Dyspnea-Current: moderate Possible Cause: occasional episodes Modifying Factors: Improves With: activity, coughing Associated Symptoms: cough, No chest pain/discomfort, No fever Allergies/Adverse Reactions: No Known Drug Allergies Allergy (Verified 12/03/20 12:06) Home Medications: Albuterol 8 gm Mdi Hfa [Ventolin Hfa MDI] 8 gm IH DAILY 10/18/16 [History] Hydrocodone/APAP 10/325 mg [[place] 10/325 MG TableT] 1 tab PO Q4HPRN PRN 10/18/16 [History] Lisinopril/Hydrochlorothiazide [Lisinopril-Hctz 10-12.5 mg Tab] 1 each PO DAILY 10/18/16 [History] Meclizine HCl 25 mg [Antivert 25 mg] 25 mg PO [id number] PRN 10/18/16 [Histo ry] Hx Tetanus, Diphtheria Vaccination/Date Given: No Hx Influenza Vaccination/Date Given: No Hx Pneumococcal Vaccination/Date Given: No Travel Risk - International Travel Have you traveled outside of the country in past 3 weeks: No - Coronavirus Screening Are you exhibiting any of the following symptoms?: Yes Symptoms: Cough: New Onset, Shortness of Breath Close contact with a COVID-19 positive Pt in past 14-21 Days: No - Review of Systems Constitutional: No Symptoms Eyes: No Symptoms Ears, Nose, & Throat: No Symptoms Respiratory: Cough, Dyspnea Cardiac: No Symptoms Abdominal/Gastrointestinal: No Symptoms Genitourinary Symptoms: No Symptoms Musculoskeletal: No Symptoms Skin: No Symptoms Neurological: No Symptoms Psychological: No Symptoms Endocrine: No Symptoms Hematologic/Lymphatic: No Symptoms Immunological/Allergic: No Symptoms All Other Systems: Reviewed and Negative - Past Medical History Pertinent Past Medical History: Yes Respiratory History: COPD Other Medical History: BACK PAIN - Past Surgical History Past Surgical History: No - Social History Smoking Status: Former smoker How long have you smoked: 40 yrs Exposure to second hand smoke: Yes Drug Use: none Patient Lives Alone: Yes - Nursing Vital Signs Nursing Vital Signs: Initial Vital Signs Temperature 98.9 F 12/03/20 11:58 Pulse Rate 87 12/03/20 11:58 Respiratory Rate 22 12/03/20 11:58 Blood Pressure 147/91 12/03/20 11:58 O2 Sat by Pulse Oximetry 99 12/03/20 11:58 Pain Scale Pain Intensity 0 - Physical Exam General Appearance: mild distress, alert, anxiety Eye Exam: PERRL/EOMI, eyes nml inspection Ears, Nose, Throat Exam: hearing grossly normal Neck Exam: normal inspection, non-tender, supple, full range of motion Respiratory Exam: respiratory distress (Mild), airway intact, wheezing (Bilateral diffuse), No chest tenderness Cardiovascular/Chest Exam: normal heart sounds, regular rate/rhythm, murmur, normal peripheral pulses Abdominal/Gastrointestinal Exam: soft, normal bowel sounds, No tenderness Rectal Exam: not done Extremity Exam: non-tender, normal range of motion, normal inspection Neurologic Exam: alert, oriented x 3, cooperative, 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 There is improvement in today's EKG when compared to EKG dated 10/19/2016) Ordered Tests: Active Orders 24 hr Category Date Time Status Cake Wrapper STAT Care 12/03/20 12:25 Active EKG-ER Only STAT Care 12/03/20 12:24 Active IV Insertion STAT Care 12/03/20 12:24 Active Oxygen-ED Only Nasal Cannula 2 lpm Care 12/03/20 12:24 Active Pulse Oximetry (ED) STAT Care 12/03/20 12:24 Active CHEST 1 VIEW (PORTABLE) Stat Exams 12/03/20 12:25 Completed CHEST WITH CONTRAST [CT] Stat Exams 12/03/20 14:19 Completed BLOOD CULTURE Stat Lab 12/03/20 12:52 Received CBC W DIFF Stat Lab 12/03/20 12:24 Completed CMP Stat Lab 12/03/20 13:04 Completed D-DIMER QUANTITATIVE Stat Lab 12/03/20 13:04 Completed Lactic Acid Stat Lab 12/03/20 13:05 Completed Manual Differential NC Stat Lab 12/03/20 12:24 Completed NT PRO BNP Stat Lab 12/03/20 13:04 Completed PROTIME WITH INR Stat Lab 12/03/20 13:04 Completed TROPONIN Q3H Lab 12/03/20 13:04 Completed TROPONIN Q3H Lab 12/03/20 15:08 Completed TROPONIN Q3H Lab 12/03/20 18:30 Ordered TROPONIN Q3H Lab 12/03/20 21:30 Ordered TROPONIN Q3H Lab 12/04/20 00:30 Ordered Respiratory Therapy Assessment DAILY RT 12/03/20 12:39 Active Transfer Order Routine Transfer 12/03/20 Ordered Medication Summary Generic Name Dose Route Start Last Admin Trade Name Freq PRN Reason Stop Dose Admin Sodium Chloride 500 mls @ 50 mls/hr 12/03/20 14:30 12/03/20 14:23 Sodium Chloride 0.9% 500 Ml IV 01/02/21 14:29 50 mls/hr .Q10H ARMAAN Administration Discontinued Medications Generic Name Dose Route Start Last Admin Trade Name Freq PRN Reason Stop Dose Admin Albuterol Sulfate Confirm 12/03/20 12:39 Proventil 2.5 Mg/3 Ml Neb Administered 12/03/20 12:40 Dose 2.5 mg IH .STK-MED ONE Albuterol Sulfate 2.5 mg 12/03/20 12:39 12/03/20 13:06 Proventil 2.5 Mg/3 Ml Neb IH 12/03/20 12:40 2.5 mg STAT ONE Administration Lab/Rad Data: Laboratory Result Diagrams 12/03/20 12:24 12/03/20 13:04 Laboratory Results 12/03/20 12/03/2012/03/21 Range/Units 15:08 13:05 13:04 WBC (4.0-10.5) K/mm3 RBC (4.1-5.6) M/mm3 Hgb (12.5-18.0) gm/dl Hct (42-50) % MCV (78-100) fl MCH (26-32) pg MCHC (32-36) g/dl RDW (11.5-14.0) % Plt Count (150-450) K/mm3 MPV (7.5-11.0) fl Segmented Neutrophils (36.-66.) % Lymphocytes (Manual) (24-44) % Monocytes (Manual) (0.0-12.0) % Eosinophils (Manual) (0.00-3.0) % Platelet Estimate (NORMAL) RBC Morphology Anisocytosis PT (9.4-12.5) SECONDS INR (0.8-3.0) D-Dimer (215-500) ng/mL Sodium (137-145) mmol/L Potassium (3.5-5.1) mmol/L Chloride (98-107) mmol/L Carbon Dioxide (22-30) mmol/L Anion Gap (5-15) MEQ/L BUN (9-20) mg/dL Creatinine (0.66-1.25) mg/dL Estimated GFR ML/MIN Glucose (74-106) mg/dL Lactic Acid 1.2 (0.4-2.0) Calcium (8.4-10.2) mg/dL Total Bilirubin (0.2-1.3) mg/dL AST (17-59) U/L ALT (0-50) U/L Alkaline Phosphatase (38-126) U/L Troponin I 0.022 0.020 (0.000-0.034) ng/mL NT-Pro-B Natriuret Pep (0-900) pg/mL Serum Total Protein (6.3-8.2) g/dL Albumin (3.5-5.0) g/dL 12/03/20 12/03/20 12/03/20 Range/Units 13:04 13:04 12:24 WBC 5.8 (4.0-10.5) K/mm3 RBC 5.49 (4.1-5.6) M/mm3 Hgb 16.4 (12.5-18.0) gm/dl Hct 50.4 H (42-50) % MCV 91.8 (78-100) fl MCH 29.9 (26-32) pg MCHC 32.5 (32-36) g/dl RDW 14.7 H (11.5-14.0) % Plt Count 178 (150-450) K/mm3 MPV 9.8 (7.5-11.0) fl Segmented Neutrophils 80 H (36.-66.) % Lymphocytes (Manual) 18 L (24-44) % Monocytes (Manual) 1 (0.0-12.0) % Eosinophils (Manual) 1 (0.00-3.0) % Platelet Estimate NORMAL (NORMAL) RBC Morphology ABNORMAL Anisocytosis 1+ PT 12.8 H (9.4-12.5) SECONDS INR 1.08 (0.8-3.0) D-Dimer 1442 H* (215-500) ng/mL Sodium 137 (137-145) mmol/L Potassium 4.2 (3.5-5.1) mmol/L Chloride 102 (98-107) mmol/L Carbon Dioxide 21 L (22-30) mmol/L Anion Gap 18.4 H (5-15) MEQ/L BUN 18 (9-20) mg/dL Creatinine 0.89 (0.66-1.25) mg/dL Estimated GFR > 60.0 ML/MIN Glucose 115 H (74-106) mg/dL Lactic Acid (0.4-2.0) Calcium 9.0 (8.4-10.2) mg/dL Total Bilirubin 0.80 (0.2-1.3) mg/dL AST 32 (17-59) U/L ALT 15 (0-50) U/L Alkaline Phosphatase 71 (38-126) U/L Troponin I (0.000-0.034) ng/mL NT-Pro-B Natriuret Pep 494 (0-900) pg/mL Serum Total Protein 7.7 (6.3-8.2) g/dL Albumin 4.6 (3.5-5.0) g/dL - Progress Progress: improved Air Movement: fair Progress Note: 12/03/20 13:11 Chest x-ray with nonacute findings and chronic features. No infiltrate present 12/03/20 15:51 CAT scan of the chest with contrast shows no pulmonary emboli present. There is no infiltrates. There is no changes consistent with congestive heart failure. Medical decision making: This patient was discussed with his primary care physician, Dr. Ml Chadwick. Patient has COPD exacerbation. He does not normally use oxygen at home. He was mildly hypoxic upon arrival into the emergency room and in mild distress. The work-up revealed COPD exacerbation. He required oxygen supplementation via nasal cannula. I reviewed the patient history, condition, laboratory and radiographic results as well as results of EKG with Dr. Chadwick. We both agree that the patient be placed in observation and provide patient with SVN treatments and steroid injections. Blood Culture(s) Obtained: Yes Antibiotics given: No Discussed with Dr.: Debbi Counseled pt/family regarding: lab results, diagnosis, rad results - Departure Departure Disposition: Observation Clinical Impression: Hypoxia, COPD exacerbation Condition: Stable Critical Care Time: Yes Critical Care Time(excluding separately billable procedures): Critical 30-74 mins Referrals: ML CHADWICK [Primary Care Provider] - Instructions: Chronic Obstructive Pulmonary Disease
[2020-12-03] MEDS ORDERED: PROVENTIL 2.5 MG/3 ML NEB IH ONE ×2 (12:39)
--- NOTE | 2020-12-03 12:57 | XRAY ---
Indication: Short of breath. COPD. Comparison: March 04, 2018. Portable chest again demonstrates diffuse pulmonary emphysema with scattered fibrosis/scarring greatest near the lung bases. No focal infiltrate, consolidation, or large effusion. Heart is not enlarged again with tortuous descending aorta. Bony thorax intact again with mild osteopenia and degenerative changes. Impression: Continued nonacute chest with chronic features.
[2020-12-03 13:17] LABS: Hematocrit 50.4 % (42-50); Hemoglobin 16.4 gm/dl (12.5-18.0); Mean Cell Volume 91.8 fl (78-100); Mean Corpuscular Hemoglobin 29.9 pg (26-32); Mean Corpuscular Hgb Concent. 32.5 g/dl (32-36); Mean Platelet Volume 9.8 fl (7.5-11.0); Platelet Count 178 K/mm3 (150-450); Red Blood Count 5.49 M/mm3 (4.1-5.6); Red Cell Distribution Width 14.7 % (11.5-14.0); White Blood Count 5.8 K/mm3 (4.0-10.5)
[2020-12-03 13:42] LABS: ALBUMIN 4.6 g/dL (3.5-5.0); ALKALINE PHOSPHATASE 71 U/L (38-126); ANION GAP 18.4 MEQ/L (5-15); BLOOD UREA NITROGEN 18 mg/dL (9-20); CHLORIDE 102 mmol/L (98-107); Carbon Dioxide 21 mmol/L (22-30); Creatinine 1 0.89 mg/dL (0.66-1.25); EST GLOMERULAR FILTRATION RATE > 60.0 ML/MIN; Glucose 115 mg/dL (74-106); NT PRO BNP 494 pg/mL (0-900); Potassium 4.2 mmol/L (3.5-5.1); SGOT/AST 32 U/L (17-59); SGPT/ALT 15 U/L (0-50); SODIUM 137 mmol/L (137-145); Total Protein 7.7 g/dL (6.3-8.2)
[2020-12-03 14:09] LABS: INR 1.08 (0.8-3.0); PROTIME 12.8 SECONDS (9.4-12.5)
[2020-12-03] MEDS ORDERED: Sodium Chloride 0.9% 500 ML 500 ML IV ONE (14:21)
[2020-12-03] MEDS ORDERED: Sodium Chloride 0.9% 500 ML 500 ML IV SCH (14:30)
[2020-12-03 15:11] LABS: ANISOCYTOSIS 1+; Eosinophil 1 % (0.00-3.0); Lymphocytes 18 % (24-44); Monocyte 1 % (0.0-12.0); Neutrophils 80 % (36.-66.); Platelet Estimate NORMAL (NORMAL); Total Cells Counted 100
--- NOTE | 2020-12-03 15:11 | XRAY ---
Indication: Cough, short of breath, and elevated d-dimer. Multiple contiguous as images obtained through the chest using 100 cc Isovue 370 contrast and PE protocol. Comparison: October 18, 2016. There is good opacification of the pulmonary arteries to include the lobar and segmental branches. No pulmonary embolus. Heart not enlarged. Aorta remains mildly arteriosclerotic and tortuous without aneurysm/dissection. Stable tiny right hilar calcified nodes. No pathologic mediastinal/hilar lymphadenopathy. Lungs again demonstrates extensive pulmonary emphysema with minimal scattered fibrosis/scarring. No suspicious pulmonary mass/nodule, infiltrate, or effusion. Bony thorax intact again with osteopenia and mild degenerative changes throughout the spine. New T11-L2 superior endplate fractures with 25-50% height loss of uncertain chronicity. Limited upper abdomen again demonstrates mild fatty liver. A few right renal cysts, largest 1.5 cm not previously imaged. Also 3.3 x 2.8 cm and a second 3.4 x 3.2 cm infrarenal AAA not previously imaged. Impression: 1. Continued negative pulmonary embolus. No new/acute cardiopulmonary abnormalities. 2. Again diffuse pulmonary emphysema and old granulomatous disease. 3. New finding T11-L2 superior endplate fractures of uncertain chronicity. 4. New findings right renal cysts and two foci distal AAA not previously imaged.
[2020-12-03] MEDS ORDERED: MORPHINE SULFATE 4 MG INJ IV ONE (18:37)
[2020-12-03] MEDS ORDERED: Zofran 4 MG/2 ML VIAL IV ONE (18:37)
[2020-12-03] MEDS ORDERED: MORPHINE SULFATE 4 MG INJ ONE (18:39)
[2020-12-03] MEDS ORDERED: Zofran 4 MG/2 ML VIAL ONE (18:39)
[2020-12-03] MEDS ORDERED: Zofran 4 MG/2 ML VIAL IV PRN (20:52)
[2020-12-03] MEDS ORDERED: TYLENOL 325 MG PO PRN (20:52)
[2020-12-03] MEDS ORDERED: DUONEB 0.5-3 MG/3 ml Neb IH ONE (21:19)
[2020-12-03] MEDS: DUONEB 0.5-3 MG/3 ml Neb IH SCH (21:20)
[2020-12-03] MEDS: solu-MEDROL 125 MG IV SCH (22:02)
[2020-12-03] MEDS ORDERED: ANTIVERT 25 MG PO PRN (22:50)
[2020-12-04] MEDS: solu-MEDROL 125 MG IV SCH ×3 (04:21→21:08)
[2020-12-04] MEDS: HYDROCODONE-ACETAMIN 10-325 MG PO PRN ×2 (04:28→11:44)
[2020-12-04 07:01] LABS: Hematocrit 51.1 % (42-50); Hemoglobin 16.1 gm/dl (12.5-18.0); Mean Cell Volume 93.6 fl (78-100); Mean Corpuscular Hemoglobin 29.5 pg (26-32); Mean Corpuscular Hgb Concent. 31.5 g/dl (32-36); Mean Platelet Volume 9.9 fl (7.5-11.0); Platelet Count 206 K/mm3 (150-450); Red Blood Count 5.46 M/mm3 (4.1-5.6); Red Cell Distribution Width 14.6 % (11.5-14.0); White Blood Count 4.4 K/mm3 (4.0-10.5)
[2020-12-04] MEDS: DUONEB 0.5-3 MG/3 ml Neb IH SCH ×4 (07:07→19:37)
[2020-12-04] MEDS: Advair Hfa 115/21 Common canister IH SCH ×2 (07:08→19:36)
[2020-12-04 07:22] LABS: ALBUMIN 4.4 g/dL (3.5-5.0); ALKALINE PHOSPHATASE 58 U/L (38-126); ANION GAP 15.3 MEQ/L (5-15); BLOOD UREA NITROGEN 22 mg/dL (9-20); CHLORIDE 101 mmol/L (98-107); Calcium 8.9 mg/dL (8.4-10.2); Carbon Dioxide 27 mmol/L (22-30); Creatinine 1 0.97 mg/dL (0.66-1.25); EST GLOMERULAR FILTRATION RATE > 60.0 ML/MIN; Glucose 138 mg/dL (74-106); NT PRO BNP 941 pg/mL (0-900); Potassium 5.1 mmol/L (3.5-5.1); SGOT/AST 28 U/L (17-59); SGPT/ALT 16 U/L (0-50); SODIUM 139 mmol/L (137-145); Total Protein 7.4 g/dL (6.3-8.2)
[2020-12-04 07:44] LABS: BAND 1 % (0.0-2.0); Lymphocytes 8 % (24-44); Monocyte 2 % (0.0-12.0); Neutrophils 89 % (36.-66.); Platelet Estimate NORMAL (NORMAL); Total Cells Counted 100
[2020-12-04] MEDS: Flomax 0.4 MG PO SCH (15:22)
[2020-12-04] MEDS: Zestril 10 MG*** 10 MG, hydroDIURIL 25 MG*** 12.5 MG PO SCH ×2 (15:22)
[2020-12-04] MEDS: ENOXAPARIN SODIUM SQ SCH (15:24)
[2020-12-04] MEDS: Mucinex 600MG ER Tabs PO SCH ×2 (15:24→21:08)
--- NOTE | 2020-12-04 15:55 | PCM.HP ---
History of Present Illness - Chief Complaint Chief Complaint: COPD exacerbation, sec hypoxia History of Present Illness: is a 65 year old male pt of mine with COPD, HTN, hyperlipidemia, chronic back pain, chronic osteoarthritis, PAD, systolic murmur, and vertigo who was admitted through ER for COPD exacerbation. He sees Dr. Correa and is not on chronic steroids or O2 at home. He c/o increased SOB for 3-4 d and fevers to 101.7. His cough was no worse than usual and nonproductive. His WBC count and procalcitonin were normal. CXR nonacute. D-dimer was elevated, but CT chest neg for PE and PNA. He was admitted and started on breathing tx and IV steroid at 80mg q8h. - Review of Systems Constitutional: Fever Ears, Nose, & Throat: Hearing Changes (chronically low hearing in L ear) Respiratory: Cough, Short Of Breath Abdominal/Gastrointestinal: Diarrhea (x 2 at home; none here.) Genitourinary Symptoms: Other (dark urine but no leander hematuria) Musculoskeletal: Back Pain (chronic) Neurological: Dizziness (at home, but none here) All Other Systems: Reviewed and Negative Medications & Allergies Home Medications: Home Medication List Albuterol 8 gm Mdi Hfa [Ventolin Hfa MDI] 8 gm IH DAILY 10/18/16 [History Confirmed 12/03/20] Hydrocodone/APAP 10/325 mg [[place] 10/325 MG TableT] 1 tab PO Q4HPRN PRN 10/18/16 [History Confirmed 12/03/20] Lisinopril/Hydrochlorothiazide [Lisinopril-Hctz 10-12.5 mg Tab] 1 each PO DAILY 10/18/16 [History Confirmed 12/03/20] Meclizine HCl 25 mg [Antivert 25 mg] 25 mg PO [id number] PRN 10/18/16 [History Confirmed 12/03/20] Albuterol/Ipratropium 3ml Neb* [DUONEB 0.5-3 MG/3 ml Neb] 3 ml IH QID #30 ampul.neb 10/21/16 [Rx Confirmed 12/03/20] Tamsulosin HCl 0.4 mg [Flomax 0.4 MG] 0.4 mg PO DAILY 12/03/20 [History Confirmed 12/03/20] Allergies/Adverse Reactions: Allergies Allergy/AdvReac Type Severity Reaction Status Date / Time No Known Drug Allergies Allergy Verified 12/03/20 21:12 - Past Medical History Past Medical History: Yes Neurological History: No Pertinent History ENT History: Cataracts Cardiac History: Hypertension Respiratory History: COPD, Pneumonia Endocrine Medical History: No Pertinent History Musculoskelatal History: Fractures GI Medical History: No Pertinent History History: No Pertinent History Pyscho-Social History: No Pertinent History Male Reproductive Disorders: Prostate Problems Comment: BACK PAIN, back fractures, muscle spasms - Past Surgical History Past Surgical History: No - Social History Smoking Status: Current every day smoker How long have you smoked: since 14 Exposure to second hand smoke: Yes Alcohol: None Drug Use: none - Physical Exam Vital Signs: Vital Signs - 24 hr Temp Pulse Resp BP Pulse Ox 12/04/20 14:23 87 20 91 L 12/04/20 11:51 98.8 F 87 18 130/63 92 L 12/04/20 10:46 92 H 24 95 12/04/20 07:32 97.9 F 76 18 138/78 96 12/04/20 07:12 69 20 97 12/04/20 04:00 98.2 F 71 24 128/62 96 12/04/20 00:13 98.2 F 72 23 125/59 96 12/03/20 21:30 98.2 F 78 24 124/61 97 12/03/20 21:20 79 20 97 12/03/20 18:03 89 24 166/101 98 12/03/20 17:17 84 20 166/101 97 12/03/20 16:26 86 24 148/88 97 Oxygen-Last 24 hours Oxygen Flowrate (L/min)-RT 4 General Appearance: no apparent distress, alert, other (SOB with talking) Neurologic Exam: cooperative, normal mood/affect Eye Exam: eyes nml inspection Ears, Nose, Throat Exam: moist mucous membranes Neck Exam: normal inspection, non-tender, No lymphadenopathy Respiratory Exam: diminished breath sounds (fair air exchange), wheezing (exp wheezing throughout), No crackles/rales, No rhonchi Cardiovascular Exam: regular rate/rhythm (distant heart sounds) Gastrointestinal/Abdomen Exam: soft, normal bowel sounds, distention, No tenderness, No mass, No guarding, No rebound Back Exam: normal inspection, No rash Extremity Exam: No pedal edema, No swelling Skin Exam: normal color, warm, dry, No rash Results - Labs Lab/Micro Results: Lab Results-Last 24 Hours 12/03/20 12/03/20 12/03/20 Range/Units 18:25 18:28 19:00 WBC (4.0-10.5) K/mm3 RBC (4.1-5.6) M/mm3 Hgb (12.5-18.0) gm/dl Hct (42-50) % MCV (78-100) fl MCH (26-32) pg MCHC (32-36) g/dl RDW (11.5-14.0) % Plt Count (150-450) K/mm3 MPV (7.5-11.0) fl Segmented Neutrophils (36.-66.) % Band Neutrophils (0.0-2.0) % Lymphocytes (Manual) (24-44) % Monocytes (Manual) (0.0-12.0) % Platelet Estimate (NORMAL) RBC Morphology Sodium (137-145) mmol/L Potassium (3.5-5.1) mmol/L Chloride (98-107) mmol/L Carbon Dioxide (22-30) mmol/L Anion Gap (5-15) MEQ/L BUN (9-20) mg/dL Creatinine (0.66-1.25) mg/dL Estimated GFR ML/MIN Glucose (74-106) mg/dL Calcium (8.4-10.2) mg/dL Total Bilirubin (0.2-1.3) mg/dL AST (17-59) U/L ALT (0-50) U/L Alkaline Phosphatase (38-126) U/L Troponin I 0.018 (0.000-0.034) ng/mL NT-Pro-B Natriuret Pep (0-900) pg/mL Serum Total Protein (6.3-8.2) g/dL Albumin (3.5-5.0) g/dL Procalcitonin 0.044 (0.030-0.080) ng/mL SARS-CoV-2 (PCR) NEGATIVE (NEGATIVE) 12/03/20 12/04/20 12/04/20 Range/Units 21:12 00:50 05:25 WBC 4.4 (4.0-10.5) K/mm3 RBC 5.46 (4.1-5.6) M/mm3 Hgb 16.1 (12.5-18.0) gm/dl Hct 51.1 H (42-50) % MCV 93.6 (78-100) fl MCH 29.5 (26-32) pg MCHC 31.5 L (32-36) g/dl RDW 14.6 H (11.5-14.0) % Plt Count 206 (150-450) K/mm3 MPV 9.9 (7.5-11.0) fl Segmented Neutrophils 89 H (36.-66.) % Band Neutrophils 1 (0.0-2.0) % Lymphocytes (Manual) 8 L (24-44) % Monocytes (Manual) 2 (0.0-12.0) % Platelet Estimate NORMAL (NORMAL) RBC Morphology NORMAL Sodium (137-145) mmol/L Potassium (3.5-5.1) mmol/L Chloride (98-107) mmol/L Carbon Dioxide (22-30) mmol/L Anion Gap (5-15) MEQ/L BUN (9-20) mg/dL Creatinine (0.66-1.25) mg/dL Estimated GFR ML/MIN Glucose (74-106) mg/dL Calcium (8.4-10.2) mg/dL Total Bilirubin (0.2-1.3) mg/dL AST (17-59) U/L ALT (0-50) U/L Alkaline Phosphatase (38-126) U/L Troponin I 0.016 < 0.012 (0.000-0.034) ng/mL NT-Pro-B Natriuret Pep (0-900) pg/mL Serum Total Protein (6.3-8.2) g/dL Albumin (3.5-5.0) g/dL Procalcitonin (0.030-0.080) ng/mL SARS-CoV-2 (PCR) (NEGATIVE) 12/04/20 12/04/20 Range/Units 05:25 05:25 WBC (4.0-10.5) K/mm3 RBC (4.1-5.6) M/mm3 Hgb (12.5-18.0) gm/dl Hct (42-50) % MCV (78-100) fl MCH (26-32) pg MCHC (32-36) g/dl RDW (11.5-14.0) % Plt Count (150-450) K/mm3 MPV (7.5-11.0) fl Segmented Neutrophils (36.-66.) % Band Neutrophils (0.0-2.0) % Lymphocytes (Manual) (24-44) % Monocytes (Manual) (0.0-12.0) % Platelet Estimate (NORMAL) RBC Morphology Sodium 139 (137-145) mmol/L Potassium 5.1 D (3.5-5.1) mmol/L Chloride 101 (98-107) mmol/L Carbon Dioxide 27 (22-30) mmol/L Anion Gap 15.3 H (5-15) MEQ/L BUN 22 H (9-20) mg/dL Creatinine 0.97 (0.66-1.25) mg/dL Estimated GFR > 60.0 ML/MIN Glucose 138 H (74-106) mg/dL Calcium 8.9 (8.4-10.2) mg/dL Total Bilirubin 0.60 (0.2-1.3) mg/dL AST 28 (17-59) U/L ALT 16 (0-50) U/L Alkaline Phosphatase 58 (38-126) U/L Troponin I (0.000-0.034) ng/mL NT-Pro-B Natriuret Pep 941 H (0-900) pg/mL Serum Total Protein 7.4 (6.3-8.2) g/dL Albumin 4.4 (3.5-5.0) g/dL Procalcitonin 0.049 (0.030-0.080) ng/mL SARS-CoV-2 (PCR) (NEGATIVE) Microbiology 12/03/20 12:50 Blood Culture - Preliminary Blood NO GROWTH TO DATE 12/03/20 12:52 Blood Culture - Preliminary Blood NO GROWTH TO DATE - Radiology Impressions Radiology Exams & Impressions: Radiology Procedures Category Date Time Status CHEST 1 VIEW (PORTABLE) Stat Exams 12/03/20 12:25 Completed CHEST WITH CONTRAST [CT] Stat Exams 12/03/20 14:19 Completed - Other Procedures and Tests Respiratory Therapy 12/03/20 20:52 Oxygen Nasal Cannula 2 lpm 12/03/20 22:20 Respiratory MDI BID Assessment/Plan (1) COPD exacerbation Current Visit: Yes Status: Acute Assessment & Plan: No indication of bacterial infection, with nl WBC and neg procalcitonin. On IV steroids (80mg q8h) and breathing tx. Await improvement. O2 sats in the 90s on 2L NC. Started mucinex. Code(s): J44.1 - CHRONIC OBSTRUCTIVE PULMONARY DISEASE W (ACUTE) EXACERBATION (2) Essential hypertension Current Visit: No Status: Chronic Code(s): I10 - ESSENTIAL (PRIMARY) HYPERTENSION
[2020-12-05] MEDS: solu-MEDROL 125 MG IV SCH ×3 (06:26→22:25)
[2020-12-05] MEDS: HYDROCODONE-ACETAMIN 10-325 MG PO PRN (06:36)
[2020-12-05] MEDS: DUONEB 0.5-3 MG/3 ml Neb IH SCH ×4 (07:25→20:22)
[2020-12-05] MEDS: Advair Hfa 115/21 Common canister IH SCH ×2 (07:25→20:23)
[2020-12-05] MEDS ORDERED: NON-FORMULARY ITEM (Lisinopril/Hydrochlorothiazide [Lisinopril-Hctz 10-12.5 Mg Tab] 1 EACH PO SCH (10:00)
[2020-12-05] MEDS: Zestril 10 MG*** 10 MG, hydroDIURIL 25 MG*** 12.5 MG PO SCH ×2 (10:37)
[2020-12-05] MEDS: Flomax 0.4 MG PO SCH (10:37)
[2020-12-05] MEDS: ENOXAPARIN SODIUM SQ SCH (10:38)
[2020-12-05] MEDS: Mucinex 600MG ER Tabs PO SCH ×2 (10:38→22:25)
[2020-12-05] MEDS ORDERED: PROVENTIL 2.5 MG/3 ML NEB IH PRN (15:13)
--- NOTE | 2020-12-05 15:31 | PCM.NOTE ---
Date and Time: 12/05/20 1528 Subjective Assessment: Pt may be feeling somewhat better with respect to breathing. His oxygen has been decreased to 1 L per NC. He had a hard night, he says, with difficulty getting comfortable in bed and being frequently wakened by staff. - Review of Systems Constitutional: No Fever Respiratory: Cough, Short Of Breath Objective Exam General Appearance: no apparent distress, alert, other (mild tachypnea) Neurologic Exam: oriented x 3, cooperative, normal mood/affect Skin Exam: normal color, warm, dry, No rash Neck Exam: normal inspection Respiratory Exam: diminished breath sounds (fair air exchange), wheezing (faint, scattered), No crackles/rales, No rhonchi Cardiovascular Exam: regular rate/rhythm, normal heart sounds, No murmur Gastrointestinal/Abdomen Exam: soft, normal bowel sounds, No tenderness, No distention, No mass, No guarding, No rebound Extremity Exam: normal inspection, No pedal edema, No swelling OBJECTIVE DATA Vital Signs: Vital Signs - 24 hr Temp Pulse Resp BP Pulse Ox 12/05/20 15:11 80 22 94 L 12/05/20 12:00 98.7 F 99 H 24 129/66 100 12/05/20 11:03 84 22 91 L 12/05/20 08:00 98.5 F 84 22 133/60 94 L 12/05/20 07:28 64 18 94 L 12/05/20 04:00 98.4 F 74 24 135/60 96 12/04/20 23:38 97.8 F 83 25 H 142/65 94 L 12/04/20 20:00 97.9 F 80 24 139/69 94 L 12/04/20 19:38 63 20 94 L 12/04/20 16:00 98.2 F 91 H 18 114/73 91 L Pain Assessment - Last Documented Pain Intensity 0 Pain Scale Used 0-10 Pain Scale Intake and Output: Intake & Output 12/03/20 12/04/20 12/05/20 12/06/20 11:59 11:59 11:59 11:59 Intake Total 620 1360 480 Output Total 400 1650 300 Balance 220 -290 180 Weight 79.832 kg 72.1 kg 72.3 kg Assessment/Plan (1) COPD exacerbation Current Visit: Yes Status: Acute Assessment & Plan: starting to improve as evidenced by decreased O2 requirement. Continue steroids and nebs. Code(s): J44.1 - CHRONIC OBSTRUCTIVE PULMONARY DISEASE W (ACUTE) EXACERBATION (2) Essential hypertension Current Visit: No Status: Chronic Code(s): I10 - ESSENTIAL (PRIMARY) HYPERTENSION
[2020-12-05] MEDS ORDERED: Mucinex 600MG ER Tabs PO ONE (20:10)
[2020-12-05] MEDS ORDERED: solu-MEDROL 125 MG ONE (20:10)
[2020-12-06 05:23] LABS: Hematocrit 47.4 % (42-50); Mean Cell Volume 93.7 fl (78-100); Mean Corpuscular Hemoglobin 29.6 pg (26-32); Mean Corpuscular Hgb Concent. 31.6 g/dl (32-36); Mean Platelet Volume 9.5 fl (7.5-11.0); Platelet Count 226 K/mm3 (150-450); Red Blood Count 5.06 M/mm3 (4.1-5.6); Red Cell Distribution Width 14.6 % (11.5-14.0); White Blood Count 9.1 K/mm3 (4.0-10.5)
[2020-12-06] MEDS: solu-MEDROL 125 MG IV SCH ×3 (05:27→21:41)
[2020-12-06 06:49] LABS: BLOOD UREA NITROGEN 33 mg/dL (9-20); CHLORIDE 100 mmol/L (98-107); Calcium 8.8 mg/dL (8.4-10.2); Carbon Dioxide 27 mmol/L (22-30); Creatinine 1 1.01 mg/dL (0.66-1.25); EST GLOMERULAR FILTRATION RATE > 60.0 ML/MIN; Glucose 123 mg/dL (74-106); Potassium 4.5 mmol/L (3.5-5.1); SODIUM 137 mmol/L (137-145)
[2020-12-06] MEDS: Advair Hfa 115/21 Common canister IH SCH ×2 (07:00→19:19)
[2020-12-06] MEDS: DUONEB 0.5-3 MG/3 ml Neb IH SCH ×4 (07:00→19:17)
--- NOTE | 2020-12-06 08:15 | PCM.NOTE ---
Date and Time: 12/06/20812 Subjective Assessment: Pt says his breathing is much better. Marcio po. - Review of Systems Constitutional: No Fever Respiratory: Cough, Short Of Breath Objective Exam General Appearance: no apparent distress, alert Neurologic Exam: oriented x 3, cooperative Skin Exam: normal color, warm, dry, No rash Respiratory Exam: diminished breath sounds (fair air exchange), wheezing (scattered faint wheezes), No crackles/rales, No rhonchi Cardiovascular Exam: regular rate/rhythm, normal heart sounds, No murmur Gastrointestinal/Abdomen Exam: soft, normal bowel sounds, No tenderness, No distention, No mass, No guarding, No rebound Extremity Exam: normal inspection, No pedal edema, No swelling OBJECTIVE DATA Vital Signs: Vital Signs - 24 hr Temp Pulse Resp BP Pulse Ox 12/06/20 07:00 71 24 92 L 12/06/20 04:00 98.3 F 70 20 130/62 97 12/05/20 23:35 98.1 F 72 24 118/62 94 L 12/05/20 20:24 80 22 95 12/05/20 20:00 98.4 F 88 25 H 136/77 94 L 12/05/20 16:00 98.6 F 80 22 136/65 94 L 12/05/20 15:11 80 22 94 L 12/05/20 12:00 98.7 F 99 H 24 129/66 100 12/05/20 11:03 84 22 91 L Pain Assessment - Last Documented Pain Intensity 0 Pain Scale Used 0-10 Pain Scale Intake and Output: Intake & Output 12/03/20 12/04/20 12/05/20 12/06/20 11:59 11:59 11:59 11:59 Intake Total 620 1360 1220 Output Total 400 1650 1250 Balance 220 -290 -30 Weight 79.832 kg 72.1 kg 72.3 kg Lab Results: Lab Results-Last 24 Hours 12/06/20 12/06/20 Range/Units 04:38 04:38 WBC 9.1 (4.0-10.5) K/mm3 RBC 5.06 (4.1-5.6) M/mm3 Hgb 15.0 (12.5-18.0) gm/dl Hct 47.4 (42-50) % MCV 93.7 (78-100) fl MCH 29.6 (26-32) pg MCHC 31.6 L (32-36) g/dl RDW 14.6 H (11.5-14.0) % Plt Count 226 (150-450) K/mm3 MPV 9.5 (7.5-11.0) fl Sodium 137 (137-145) mmol/L Potassium 4.5 (3.5-5.1) mmol/L Chloride 100 (98-107) mmol/L Carbon Dioxide 27 (22-30) mmol/L Anion Gap 14.0 (5-15) MEQ/L BUN 33 H (9-20) mg/dL Creatinine 1.01 (0.66-1.25) mg/dL Estimated GFR > 60.0 ML/MIN Glucose 123 H (74-106) mg/dL Calcium 8.8 (8.4-10.2) mg/dL Assessment/Plan (1) COPD exacerbation Current Visit: Yes Status: Acute Assessment & Plan: Improving. On IV steroids and nebs. Checking BNP and procalcitonin today. Code(s): J44.1 - CHRONIC OBSTRUCTIVE PULMONARY DISEASE W (ACUTE) EXACERBATION (2) Essential hypertension Current Visit: No Status: Chronic Code(s): I10 - ESSENTIAL (PRIMARY) HYPERTENSION
[2020-12-06] MEDS: Mucinex 600MG ER Tabs PO SCH ×2 (11:02→21:41)
[2020-12-06] MEDS: Flomax 0.4 MG PO SCH (11:03)
[2020-12-06] MEDS: Zestril 10 MG*** 10 MG, hydroDIURIL 25 MG*** 12.5 MG PO SCH ×2 (11:03)
[2020-12-06] MEDS: ENOXAPARIN SODIUM SQ SCH (11:14)
[2020-12-07] MEDS: solu-MEDROL 125 MG IV SCH ×2 (05:01→20:18)
[2020-12-07] MEDS: DUONEB 0.5-3 MG/3 ml Neb IH SCH ×4 (06:43→19:19)
[2020-12-07] MEDS: Advair Hfa 115/21 Common canister IH SCH ×2 (06:45→19:19)
[2020-12-07] MEDS: HYDROCODONE-ACETAMIN 10-325 MG PO PRN (07:39)
--- NOTE | 2020-12-07 08:39 | PCM.NOTE ---
Date and Time: 12/07/20 08 Subjective Assessment: Pt feels like his breathing is back to baseline. Plans to be up walking more today. Marcio po fine. Was given O2 in the past but the tank was too big so he sent it back. - Review of Systems Constitutional: No Fever Respiratory: Cough, Short Of Breath Objective Exam General Appearance: no apparent distress, alert Neurologic Exam: oriented x 3, cooperative Skin Exam: normal color, warm, dry, No rash Eye Exam: eyes nml inspection Ears, Nose, Throat Exam: moist mucous membranes Neck Exam: normal inspection Respiratory Exam: diminished breath sounds (fair air exchange), No crackles/rales, No rhonchi, No wheezing Cardiovascular Exam: regular rate/rhythm, normal heart sounds, No murmur Extremity Exam: normal inspection, No pedal edema, No swelling OBJECTIVE DATA Vital Signs: Vital Signs - 24 hr Temp Pulse Resp BP Pulse Ox 12/07/20 07:34 98.0 F 70 18 146/70 97 12/07/20 06:47 72 16 96 12/07/20 04:00 98.3 F 65 18 134/62 95 12/06/20 23:24 98.1 F 75 18 110/58 97 12/06/20 20:00 98.2 F 94 H 24 117/60 94 L 12/06/20 19:21 94 H 24 94 L 12/06/20 16:00 99.0 F 93 H 16 145/76 93 L 12/06/20 14:35 91 H 24 93 L 12/06/20 11:44 98.0 F 80 16 134/64 95 12/06/20 10:39 92 H 22 96 Pain Assessment - Last Documented Pain Intensity 10 Pain Scale Used 0-10 Pain Scale Intake and Output: Intake & Output 12/04/20 12/05/20 12/06/20 12/07/20 11:59 11:59 11:59 11:59 Intake Total 620 1360 1800 860 Output Total 400 1650 1500 1200 Balance 220 -290 300 -340 Weight 72.1 kg 72.3 kg 72.3 kg 73 kg Lab Results: Lab Results-Last 24 Hours 12/06/20 Range/Units 07:10 NT-Pro-B Natriuret Pep 282 (0-900) pg/mL Procalcitonin 0.040 (0.030-0.080) ng/mL Multi-Disciplinary Progress Notes: Multi-Disciplinary Progress Notes 12/06/20 14:34 Respiratory Note by Emmy Jeong PT'S O2 SAT ON ROOM AIR WHILE AT REST WAS 85%. PT WAS PLACED BACK ON 2LPM VIA NASAL CANNULA. O2 SAT INCREASED TO 93%. Initialized on 12/06/20 14:34 - END OF NOTE Assessment/Plan (1) COPD exacerbation Current Visit: Yes Status: Acute Assessment & Plan: Much improved. Decrease steroids today from 80mg IV q8h to 60mg IV q12h. Plan to qualify pt today and send home tomorrow on O2. Sounds as though he was prescribed O2 in the past so he may actually be at his baseline. Portable O2 if possible. Code(s): J44.1 - CHRONIC OBSTRUCTIVE PULMONARY DISEASE W (ACUTE) EXACERBATION (2) Essential hypertension Current Visit: No Status: Chronic Code(s): I10 - ESSENTIAL (PRIMARY) HYPERTENSION
[2020-12-07] MEDS: Flomax 0.4 MG PO SCH (10:41)
[2020-12-07] MEDS: Mucinex 600MG ER Tabs PO SCH ×2 (10:41→20:18)
[2020-12-07] MEDS: Zestril 10 MG*** 10 MG, hydroDIURIL 25 MG*** 12.5 MG PO SCH ×2 (10:41)
[2020-12-07] MEDS: ENOXAPARIN SODIUM SQ SCH (10:43)
[2020-12-08] MEDS: solu-MEDROL 125 MG IV SCH (05:17)
[2020-12-08] MEDS: DUONEB 0.5-3 MG/3 ml Neb IH SCH (06:43)
[2020-12-08] MEDS: Advair Hfa 115/21 Common canister IH SCH (06:43)
[2020-12-08 06:48] VITALS: O2SAT 94
[2020-12-08] MEDS: HYDROCODONE-ACETAMIN 10-325 MG PO PRN (08:04)
[2020-12-08 08:12] VITALS: BP 136/68; PULSE 76
--- NOTE | 2020-12-08 08:45 | PCM.DS ---
Discharge Summary Date of Admission: 12/04/20 14:00 Admitting Physician: ML CAROLINA Primary Care Provider: ML CAROLINA Allergies Allergies No Known Drug Allergies Allergy (Verified 12/03/20 21:12) Hospital Summary - Hospital Course Hospital Course: Pt is 65 yo male pt of mine with COPD who was admitted through ER with COPD exacerbation and hypoxia. His WBC count, CXR, and procalcitonin were nl so no antibiotics were started. He was put on IV steroids and steadily recovered. He has continued to require 2L O2 per NC - apparently he was prescribed this in the past but the oxygen tank was too big so he took it back. Pt's breathing is back to baseline aside from some [place]. Will discharge to home on po prednisone and nebs QID (pt states he has nebulizer medicine at home). F/u with me in 1 week in the office. - Vitals & Intake/Output Vital Signs: Vital Signs Temperature 97.9 F 12/08/20 08:00 Pulse Rate 76 12/08/20 08:00 Respiratory Rate 20 12/08/20 08:00 Blood Pressure 136/68 12/08/20 08:00 O2 Sat by Pulse Oximetry 94 L 12/08/20 08:00 Intake & Output: Intake & Output 12/05/20 12/06/20 12/07/20 12/08/20 11:59 11:59 11:59 11:59 Intake Total 1360 1800 1100 740 Output Total 1650 1500 1200 575 Balance -290 300 -100 165 Weight 72.3 kg 72.3 kg 73 kg 73 kg - Lab Result Diagrams: 12/06/20 04:38 12/06/20 04:38 Micro Results-Entire Visit: Microbiology 12/03/20 12:52 Blood Culture Gram Stain - Final Blood Not Reportable Blood Culture - Final NO GROWTH 12/03/20 12:50 Blood Culture Gram Stain - Final Blood Not Reportable Blood Culture - Final NO GROWTH - Procedures and Test Procedures and Tests throughout Hospitalization: Therapy Orders & Screens 12/03/20 12:39 Respiratory Therapy Assessment DAILY Comment: 12/03/20 20:52 EKG REPEAT IN AM Comment: Oxygen Nasal Cannula 2 lpm Comment: Respiratory Therapy Consult ROUTINE Comment: Reason For Exam: 12/03/20 21:52 OT Screen per Nursing Assess ONCE Comment: Protocol Order Physician Instructions: Greater than 3 points order OT Admission Screening Reason For Exam: Triggered on Admission Diagnosis: COPD exacerbation, sec hypoxia Open Wound/Cellutlitis/Pressure Ulcers: No Acute Fx/ORIF/Change in wt bearing status: No Severe MUSCULOSKELETAL pain: Yes ADL Dysfunction: No Acute CVA w/Hemiparesis/Hemiplegia: No Decreased Functional Mobility/Strength: No Sprain/Strain: No Acute Post-op Mobility Dysfunction: No Total Points: 5 PT Screen per Nursing Assess ONCE Comment: Protocol Order Physician Instructions: Greater than 3 points order PT Admission Screenin Reason For Exam: Triggered on Admission Diagnosis: COPD exacerbation, sec hypoxia Open Wound/Cellutlitis/Pressure Ulcers: No Acute Fx/ORIF/Change in wt bearing status: No Severe MUSCULOSKELETAL pain: Yes ADL Dysfunction: No Acute CVA w/Hemiparesis/Hemiplegia: No Decreased Functional Mobility/Strength: No Sprain/Strain: No Acute Post-op Mobility Dysfunction: No Total Points: 5 Smoking Cessation Education ONCE Comment: Diagnosis: COPD exacerbation, sec hypoxia Smoking Status: Current every day smoker How long have you smoked: since 14 Have you smoked in the past 12 months: Yes Do you dip or chew tobacco: No If,Former Smoker,when did you quit: LAST WEEK 12/06/20 11:33 RT Miscellaneous Order ROUTINE Comment: Physician Instructions: Reason For Exam: WEAN OXYGEN TOLERATED Diagnosis: COPD Discharge Exam General Appearance: no apparent distress (sitting on edge of bed, dressed), laurent rt Neurologic Exam: oriented x 3, cooperative Eye Exam: eyes nml inspection Ears, Nose, Throat Exam: moist mucous membranes Neck Exam: normal inspection Respiratory Exam: lungs clear, diminished breath sounds (good air exchange), No crackles/rales, No rhonchi, No wheezing Cardiovascular Exam: regular rate/rhythm, normal heart sounds, No murmur Extremity Exam: normal inspection, No swelling Skin Exam: normal color, warm, dry, No rash Final Diagnosis/Problem List - Final Discharge Diagnosis/Problem (1) COPD exacerbation Current Visit: Yes Status: Acute Assessment & Plan: Much improved. Home on po steroids and nebs QID - duonebs if he has them, but albuterol nebs OK if not. Code(s): J44.1 - CHRONIC OBSTRUCTIVE PULMONARY DISEASE W (ACUTE) EXACERBATION (2) Essential hypertension Current Visit: No Status: Chronic Assessment & Plan: some elevated BP this stay but will not change meds as there is danger of dropping his bp too low; did have some BP as low as 110 systolic here. Code(s): I10 - ESSENTIAL (PRIMARY) HYPERTENSION - Discharge Disposition: Home, Self-Care Condition: Good Prescriptions: New Prednisone 20 mg [Deltasone 20 mg] 20 mg PO DAILY #17 tablet Continue Hydrocodone/APAP 10/325 mg [[place] 10/325 MG TableT] 1 tab PO Q4HPRN PRN PRN Reason: Pain Albuterol 8 gm Mdi Hfa [Ventolin Hfa MDI] 8 gm IH DAILY Lisinopril/Hydrochlorothiazide [Lisinopril-Hctz 10-12.5 mg Tab] 1 each PO DAILY Meclizine HCl 25 mg [Antivert 25 mg] 25 mg PO [id number] PRN PRN Reason: Nausea Albuterol/Ipratropium 3ml Neb* [DUONEB 0.5-3 MG/3 ml Neb] 3 ml IH QID #30 ampul.neb Tamsulosin HCl 0.4 mg [Flomax 0.4 MG] 0.4 mg PO DAILY Follow up with: ML CAROLINA [Primary Care Provider] -
[2020-12-08] MEDS: Mucinex 600MG ER Tabs PO SCH (10:01)
[2020-12-08] MEDS: Zestril 10 MG*** 10 MG, hydroDIURIL 25 MG*** 12.5 MG PO SCH ×2 (10:02)
[2020-12-08] MEDS: Flomax 0.4 MG PO SCH (10:04)
[2020-12-08] MEDS: ENOXAPARIN SODIUM SQ SCH (10:05)
== END 2020-12-08 10:45 | disposition home or self-care (01) | DRG 192 ==
LOC: ED 11:56 → MED SURG 20:40 → OBSVTOIN 12-04 14:00
PROVIDERS: ADMIT Family Medicine; ATTEND Family Medicine
DX: J44.1 Chronic obstructive pulmonary disease with (acute) exacerbation (principal); Z79.899 Other long term (current) drug therapy; I10 Essential (primary) hypertension; E78.5 Hyperlipidemia, unspecified; F17.200 Nicotine dependence, unspecified, uncomplicated; Z20.828 Contact with and (suspected) exposure to other viral communicable diseases; R09.02 Hypoxemia
CPT/HCPCS: 36000; 36415; 71045; 71260; 80048; 80053; 83605; 83880; 84145; 84484; 85025; 85027; 85379; 85610; 87040; 93005; 93041; 94640; 94760; 96374; 96375; 99285; 99291; G0378; U0003; J1650; J2270; J2405; J2930; J7609; A9270-GY

== ENCOUNTER 2021-01-05 17:23 | Day surgery (SDC) | payer MEDICARE ==
[2021-01-05] MEDS ORDERED: Sodium Chloride 0.9(Preservative Free) 10 ML IJ ONE (17:24)
[2021-01-05] MEDS ORDERED: Depo-Medrol 40 MG/ML IM ONE (17:24)
[2021-01-05] MEDS ORDERED: Xylocaine 1% Vial 30 ML PF IJ ONE (17:24)
--- NOTE | 2021-01-05 20:30 | XRAY ---
Indication: Right L3-S1 transforaminal MARISOL. Intraoperative fluoroscopy provided for 39 seconds. 6 digital spot image submitted for interpretation demonstrates posterior needle tips projecting over the expected right L3 and L4 nerve root. Small amount of contrast injected for needle tip placement. Correlate with intraoperative findings/report.
--- NOTE | 2021-01-06 08:43 | XRAY ---
39 seconds fluoroscopy time In surgery for right L3-S1 transforaminal MARISOL.
== END 2021-01-05 19:15 | disposition home or self-care (01) ==
LOC: SDC-PAIN 17:23
PROVIDERS: ATTEND Psychiatry & Neurology Pain Medicine
DX: M54.16 Radiculopathy, lumbar region (principal); Z79.899 Other long term (current) drug therapy
CPT/HCPCS: 64483; 64484; 72100; 77003; J1030; J2001; Q9966

== ENCOUNTER 2021-02-02 17:17 | Day surgery (SDC) | payer MEDICARE ==
[2021-02-02] MEDS ORDERED: Depo-Medrol 40 MG/ML IM ONE (17:18)
[2021-02-02] MEDS ORDERED: Xylocaine 1% Vial 30 ML PF IJ ONE (17:18)
[2021-02-02] MEDS ORDERED: Marcaine Mpf 0.5% Vial 30 Ml IJ ONE (17:18)
--- NOTE | 2021-02-03 09:13 | XRAY ---
Indication: Right SI joint injection. Intraoperative fluoroscopy provided for 15 seconds. Single lateral digital spot image submitted for interpretation demonstrates posterior needle tip projecting mid sacrum. Correlate with intraoperative findings/report.
--- NOTE | 2021-02-03 15:50 | XRAY ---
15 seconds of fluoroscopy was used in surgery for a right SI joint injection.
== END 2021-02-02 19:04 | disposition home or self-care (01) ==
LOC: SDC-PAIN 17:17
PROVIDERS: ATTEND Psychiatry & Neurology Pain Medicine
DX: M46.1 Sacroiliitis, not elsewhere classified (principal); Z79.899 Other long term (current) drug therapy
CPT/HCPCS: 27096; 72020; 77002; J1030; J2001; G0260

== ENCOUNTER 2021-03-17 19:55 | Emergency (ER) | payer MEDICARE ==
[2021-03-17] MEDS ORDERED: SODIUM BICARBONATE 50 MEQ/50 ML ABBOJECT IV ONE (19:56)
[2021-03-17] MEDS ORDERED: EPINEPHRINE ABBOJECT 1 MG IV ONE (19:56)
[2021-03-17] MEDS ORDERED: Sodium Chloride 0.9% 1000 ML 1,000 ML IV STA ×2 (20:19→22:20)
[2021-03-17 20:28] VITALS: O2SAT 99
[2021-03-17] MEDS ORDERED: Sodium Chloride 0.9% 1000 ML 1,000 ML ONE (20:32)
--- NOTE | 2021-03-17 20:42 | ERPHSYRPT ---
- History of Present Illness Time Seen by Provider: 03/17/21 20:05 Source: patient, EMS Exam Limitations: clinical condition Patient Subjective Stated Complaint: pt was at apartment complex outside smoking, went to go up to his room, got to his floor but could not make it to his room, sat in the hallway and his neighbor called the ambulance Triage Nursing Assessment: pt arrived via EMS for sob, pt was outside smoking at this apartment complex and went to go upstairs to his room and became very sob. Pt could not make it to his room, stopped in the hallway to try to catch his breath, neighbor called the ambulance. Pt arrived on 6L n/c, shallow resp, not moving much air with pursed lip breathing. Pt has O2 at home but rarely wears it, states, "I haven't worn it in quite a while". Lung mayo ant and post and diminished, coarse and tight, not moving much air. Pt is belly breathing. Pt denies any cough. Pt smokes 1/2 ppd x50+ years. Has not received Covid vaccines, hx of copd and pneumonia. Physician History: This is a 66-year-old white male patient of Dr. Farrukh Vicente who has a history of COPD that is steroid-dependent. He has a history of hypertension as well. Patient continues to smoke daily. Patient went out to smoke at his apartment but was having significant shortness of breath when he came back to his hallway. A fellow tenant saw him and they called the ambulance service and patient was brought in by EMS. Patient has no chest pain at this time but does complain of some abdominal pain. He arrives tachycardic, and shortness of breath. Patient is supposed to be wearing his oxygen but he states that he does not always wear that. He also does not take his medication as prescribed except for his pain medication. Timing/Duration: today Severity of Dyspnea-Max: moderate Severity of Dyspnea-Current: moderate Possible Cause: frequent episodes Modifying Factors: Improves With: activity Associated Symptoms: No chest pain/discomfort Allergies/Adverse Reactions: No Known Drug Allergies Allergy (Verified 03/17/21 20:28) Home Medications: Albuterol 8 gm Mdi Hfa [Ventolin Hfa MDI] 8 gm IH DAILY 10/18/16 [History] Hydrocodone/APAP 10/325 mg [[place] 10/325 MG TableT] 1 tab PO Q4HPRN PRN 10/18/16 [History] Lisinopril/Hydrochlorothiazide [Lisinopril-Hctz 10-12.5 mg Tab] 1 each PO DAILY 10/18/16 [History] Meclizine HCl 25 mg [Antivert 25 mg] 25 mg PO [id number] PRN 10/18/16 [History] Tamsulosin HCl 0.4 mg [Flomax 0.4 MG] 0.4 mg PO DAILY 12/03/20 [History] Hx Tetanus, Diphtheria Vaccination/Date Given: Yes Hx Influenza Vaccination/Date Given: No Hx Pneumococcal Vaccination/Date Given: Yes Immunizations Up to Date: Yes Travel Risk - International Travel Have you traveled outside of the country in past 3 weeks: No - Coronavirus Screening Are you exhibiting any of the following symptoms?: Yes Symptoms: Shortness of Breath Close contact with a COVID-19 positive Pt in past 14-21 Days: No - Vaccine Status Have you recieved a Covid-19 vaccination: No - Review of Systems Constitutional: Weakness Eyes: No Symptoms Ears, Nose, & Throat: No Symptoms Respiratory: Dyspnea Cardiac: No Symptoms Abdominal/Gastrointestinal: No Symptoms Genitourinary Symptoms: No Symptoms Musculoskeletal: No Symptoms Skin: No Symptoms Neurological: No Symptoms Psychological: No Symptoms Endocrine: No Symptoms Hematologic/Lymphatic: No Symptoms Immunological/Allergic: No Symptoms All Other Systems: Reviewed and Negative - Past Medical History Pertinent Past Medical History: Yes Neurological History: No Pertinent History ENT History: Cataracts Cardiac History: Hypertension Respiratory History: COPD, Pneumonia Endocrine Medical History: No Pertinent History Musculoskeletal History: Fractures GI Medical History: No Pertinent History History: No Pertinent History Psycho-Social History: No Pertinent History Male Reproductive Disorders: Prostate Problems Other Medical History: BACK PAIN, back fractures, muscle spasms - Past Surgical History Past Surgical History: No - Social History Smoking Status: Current every day smoker How long have you smoked: 50 yrs Exposure to second hand smoke: Yes Drug Use: none Patient Lives Alone: No - Nursing Vital Signs Nursing Vital Signs: Initial Vital Signs Temperature 97.5 F 03/17/21 19:56 Pulse Rate 140 H 03/17/21 19:56 Respiratory Rate 40 H 03/17/21 19:56 Blood Pressure 83/62 09/30/21 19:56 O2 Sat by Pulse Oximetry 100 03/17/21 19:56 Pain Scale Pain Intensity 0 - Physical Exam General Appearance: moderate distress, alert, cachetic Eye Exam: PERRL/EOMI, eyes nml inspection Ears, Nose, Throat Exam: hearing grossly normal, normal ENT inspection, normal pharynx Neck Exam: normal inspection, non-tender, supple, full range of motion Respiratory Exam: normal breath sounds, lungs clear, respiratory distress, airway intact, No chest tenderness Cardiovascular/Chest Exam: tachycardia Abdominal/Gastrointestinal Exam: soft, normal bowel sounds, tenderness, rebound, No guarding (The gastric area) Rectal Exam: not done Extremity Exam: non-tender, normal range of motion, normal inspection, normal capillary refill Neurologic Exam: alert, oriented x 3, cooperative, 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 Patient was moving around during EKG and taking multiple deep breaths including breathing from abdomen. We will repeat the EKG.) Ordered Tests: Active Orders 24 hr Category Date Time Status EKG-ER Only STAT Care 03/17/21 20:19 Active IV Insertion STAT Care 03/17/21 20:19 Active ABDOMEN AND PELVIS W/0 CONTRAS [CT] Routine Exams 03/17/21 21:33 Taken CHEST 1 VIEW (PORTABLE) Routine Exams 03/17/21 23:24 Taken CHEST 1 VIEW (PORTABLE) Stat Exams 03/17/21 20:31 Taken ABG [ARTERIAL BLOOD GASES] Stat Lab 03/17/21 20:54 Completed AMYLASE Stat Lab 03/17/21 20:45 Completed CBC W DIFF Stat Lab 03/17/21 20:45 Completed CMP Stat Lab 03/17/21 20:45 Completed D-DIMER QUANTITATIVE Stat Lab 03/17/21 20:45 Completed LIPASE Stat Lab 03/17/21 20:45 Completed Lactic Acid Stat Lab 03/17/21 20:41 Completed Lactic Acid Stat Lab 03/17/21 22:53 Received Manual Differential NC Stat Lab 03/17/21 20:45 Completed NT PRO BNP Stat Lab 03/17/21 20:45 Completed TROPONIN Q3H Lab 03/17/21 20:30 Completed TROPONIN Q3H Lab 03/17/21 23:30 Ordered TROPONIN Q3H Lab 03/18/21 02:30 Ordered TROPONIN Q3H Lab 03/18/21 05:30 Ordered TROPONIN Q3H Lab 03/18/21 08:30 Ordered UA W/RFX UR CULTURE Stat Lab 03/17/21 20:20 Ordered Medication Summary Discontinued Medications Generic Name Dose Route Start Last Admin Trade Name Freq PRN Reason Stop Dose Admin Methylprednisolone Sodium 0 mg 03/17/21 22:24 Succinate 125 mg/ Sterile IV 03/17/21 22:25 Water 2 ml STAT ONE Furosemide 40 mg 03/17/21 22:23 Lasix 40 Mg/4 Ml IV 03/17/21 22:24 STAT ONE Sodium Chloride 1,000 mls @ 999 mls/hr 03/17/21 20:19 03/17/21 20:34 Sodium Chloride 0.9% 1000 Ml IV 03/17/21 21:19 999 mls/hr .Q1H1M STA Administration Sodium Chloride Confirm 03/17/21 20:32 Sodium Chloride 0.9% 1000 Ml Administered 03/17/21 20:33 Dose 1,000 mls @ ud .ROUTE .STK-MED ONE Sodium Chloride 1,000 mls @ 999 mls/hr 03/17/21 22:20 Sodium Chloride 0.9% 1000 Ml IV 03/17/21 23:20 .Q1H1M STA Meropenem 1 g/ Sodium Chloride 100 mls @ 200 mls/hr 03/17/21 22:20 IV 03/17/21 22:49 STAT ONE Lorazepam Confirm 03/17/21 21:55 Ativan 2 Mg/1 Ml Vial Administered 03/17/21 21:56 Dose 2 mg .ROUTE .STK-MED ONE Lorazepam 1 mg 03/17/21 22:13 Ativan 2 Mg/1 Ml Vial IV 03/17/21 22:14 STAT ONE Lab/Rad Data: Laboratory Result Diagrams 03/17/21 20:45 03/17/21 20:45 Laboratory Results 03/17/21 03/17/21 03/17/21 Range/Units 20:54 20:45 20:45 WBC (4.0-10.5) K/mm3 RBC (4.1-5.6) M/mm3 Hgb (12.5-18.0) gm/dl Hct (42-50) % MCV (78-100) fl MCH (26-32) pg MCHC (32-36) g/dl RDW (11.5-14.0) % Plt Count (150-450) K/mm3 MPV (7.5-11.0) fl Segmented Neutrophils (36.-66.) % Lymphocytes (Manual) (24-44) % Monocytes (Manual) (0.0-12.0) % Eosinophils (Manual) (0.00-3.0) % Platelet Estimate (NORMAL) RBC Morphology D-Dimer 84324 H* (215-500) ng/mL Puncture Site RIGHT RADIAL pCO2 23 L (35-45) mmHg pO2 135 H* (75-100) mmHg Base Excess -16.0 L (-2.0-2.0) O2 Saturation 89.1 L (94-100) g/dF ABG pH 7.23 L* (7.35-7.45) ABG HCO3 9.6 L* (22-28) ABG O2 Sat (Measured) 100.0 (95-100) % Robe Test YES A-a Gradient 207 a/A Ratio 0.39 Hemoglobin 10.8 Carboxyhemoglobin 10.2 H* (0.0-6.9) % THgb Methemoglobin 0.7 L (1.4-1.5) % Temperature 37.0 C POC O2 Flow Rate 52 % Sodium (137-145) mmol/L Potassium 4.5 (3.5-5.1) mmol/L Chloride (98-107) mmol/L Carbon Dioxide (22-30) mmol/L Anion Gap (5-15) MEQ/L BUN (9-20) mg/dL Creatinine (0.66-1.25) mg/dL Estimated GFR ML/MIN Glucose (74-106) mg/dL Lactic Acid (0.4-2.0) Calcium (8.4-10.2) mg/dL Total Bilirubin (0.2-1.3) mg/dL AST (17-59) U/L ALT (0-50) U/L Alkaline Phosphatase (38-126) U/L Troponin I (0.000-0.034) ng/mL NT-Pro-B Natriuret Pep (0-900) pg/mL Serum Total Protein (6.3-8.2) g/dL Albumin (3.5-5.0) g/dL Amylase (30-110) U/L Lipase (23-300) U/L ABO Group O Rh Factor POSITIVE Antibody Screen NEGATIVE (NEGATIVE) 03/17/21 03/17/21 03/17/21 Range/Units 20:45 20:45 20:41 WBC 10.4 (4.0-10.5) K/mm3 RBC 3.33 L (4.1-5.6) M/mm3 Hgb 10.5 L (12.5-18.0) gm/dl Hct 33.7 L (42-50) % MCV 101.2 H (78-100) fl MCH 31.5 (26-32) pg MCHC 31.2 L (32-36) g/dl RDW 15.0 H (11.5-14.0) % Plt Count 171 (150-450) K/mm3 MPV 10.4 (7.5-11.0) fl Segmented Neutrophils 45 (36.-66.) % Lymphocytes (Manual) 45 H (24-44) % Monocytes (Manual) 8 (0.0-12.0) % Eosinophils (Manual) 2 (0.00-3.0) % Platelet Estimate NORMAL (NORMAL) RBC Morphology NORMAL D-Dimer (215-500) ng/mL Puncture Site pCO2 (35-45) mmHg pO2 (75-100) mmHg Base Excess (-2.0-2.0) O2 Saturation (94-100) g/dF ABG pH (7.35-7.45) ABG HCO3 (22-28) ABG O2 Sat (Measured) (95-100) % Robe Test A-a Gradient a/A Ratio Hemoglobin Carboxyhemoglobin (0.0-6.9) % THgb Methemoglobin (1.4-1.5) % Temperature C POC O2 Flow Rate % Sodium 139 (137-145) mmol/L Potassium 4.4 (3.5-5.1) mmol/L Chloride 108 H (98-107) mmol/L Carbon Dioxide 10 L* (22-30) mmol/L Anion Gap 24.8 H (5-15) MEQ/L BUN 14 (9-20) mg/dL Creatinine 1.58 H (0.66-1.25) mg/dL Estimated GFR 46.6 ML/MIN Glucose 322 H (74-106) mg/dL Lactic Acid 10.8 H (0.4-2.0) Calcium 8.1 L (8.4-10.2) mg/dL Total Bilirubin 0.30 (0.2-1.3) mg/dL AST 22 (17-59) U/L ALT 18 (0-50) U/L Alkaline Phosphatase 46 (38-126) U/L Troponin I (0.000-0.034) ng/mL NT-Pro-B Natriuret Pep 733 (0-900) pg/mL Serum Total Protein 5.3 L (6.3-8.2) g/dL Albumin 3.1 L (3.5-5.0) g/dL Amylase 58 (30-110) U/L Lipase 106 (23-300) U/L ABO Group Rh Factor Antibody Screen (NEGATIVE) 03/17/21 Range/Units 20:30 WBC (4.0-10.5) K/mm3 RBC (4.1-5.6) M/mm3 Hgb (12.5-18.0) gm/dl Hct (42-50) % MCV (78-100) fl MCH (26-32) pg MCHC (32-36) g/dl RDW (11.5-14.0) % Plt Count (150-450) K/mm3 MPV (7.5-11.0) fl Segmented Neutrophils (36.-66.) % Lymphocytes (Manual) (24-44) % Monocytes (Manual) (0.0-12.0) % Eosinophils (Manual) (0.00-3.0) % Platelet Estimate (NORMAL) RBC Morphology D-Dimer (215-500) ng/mL Puncture Site pCO2 (35-45) mmHg pO2 (75-100) mmHg Base Excess (-2.0-2.0) O2 Saturation (94-100) g/dF ABG pH (7.35-7.45) ABG HCO3 (22-28) ABG O2 Sat (Measured) (95-100) % Robe Test A-a Gradient a/A Ratio Hemoglobin Carboxyhemoglobin (0.0-6.9) % THgb Methemoglobin (1.4-1.5) % Temperature C POC O2 Flow Rate % Sodium (137-145) mmol/L Potassium (3.5-5.1) mmol/L Chloride (98-107) mmol/L Carbon Dioxide (22-30) mmol/L Anion Gap (5-15) MEQ/L BUN (9-20) mg/dL Creatinine (0.66-1.25) mg/dL Estimated GFR ML/MIN Glucose (74-106) mg/dL Lactic Acid (0.4-2.0) Calcium (8.4-10.2) mg/dL Total Bilirubin (0.2-1.3) mg/dL AST (17-59) U/L ALT (0-50) U/L Alkaline Phosphatase (38-126) U/L Troponin I < 0.012 (0.000-0.034) ng/mL NT-Pro-B Natriuret Pep (0-900) pg/mL Serum Total Protein (6.3-8.2) g/dL Albumin (3.5-5.0) g/dL Amylase (30-110) U/L Lipase (23-300) U/L ABO Group Rh Factor Antibody Screen (NEGATIVE) - Progress Air Movement: poor Progress Note: 03/17/21 22:24 Medical decision making: This patient, since he is been admitted in the hospital emergency department appears to be septic. There is a large left pleural effusion present. He has a 10.8 lactic acid level. The CAT scan of the abdomen and pelvis did not appear to have an intra-abdominal or pelvic cause of his sepsis. The sepsis may be pulmonary in origin. His troponin is normal. His D- dimer is significantly elevated. He was maintaining his oxygen level on 10 L nasal cannula. However he somewhat changed clinically and blood gas shows 7.2 pH and 135 PO2 with a CO2 that is 23. We have put him on BiPAP and gave him Ativan for the anxiety that he is experiencing with the mask in place. We will repeat the ABG and he is aware that we may need to intubate him. He preferred to wait and try the BiPAP first before intubation. He specifically states he is not having abdominal pain or chest pain at this time. 03/17/21 22:29 Chest x-ray shows moderate left pleural effusion. 03/17/21 23:25 Medical decision making: This patient did not want to be mechanically ventilated. He we increased his oxygenation stepwise fashion from nasal cannula to nonrebreather to BiPAP. Ultimately, he decided on intubation. Patient received Lasix, prednisone, meropenem. He continued to spiral downward despite our treatment. The patient then had a code arrest. The code started 2 and after 30 minutes of no spontaneous breath sounds, no spontaneous cardiac sounds, asystole on the monitor without CPR and his pupils were dilated and fixed, we contacted the patient's son Stephen who asked us to continue the CPR process until he got here. He arrived in there was no change in the patient's condition despite continued CPR and the code process. He then told us to stop CPR which we did at 2315. Blood Culture(s) Obtained: Yes Antibiotics given: Yes Counseled pt/family regarding: lab results, diagnosis, rad results - Departure Departure Disposition: Clinical Impression: Respiratory distress, Elevated d-dimer, Tachycardia, Hypotension Condition: Critical Care Time: Yes Critical Care Time(excluding separately billable procedures): Critical 75-104 mins Referrals: ML PERRIN [Primary Care Provider] -
[2021-03-17 20:55] LABS: A-aADO2 207; ABG HEMOGLOBIN 10.8; ABG POTASSIUM 4.5 (3.5-5.1); ARTERIAL BLOOD GAS FIO2 52 %; ARTERIAL BLOOD GAS PCO2 23 mmHg (35-45); ARTERIAL BLOOD GAS PO2 135 mmHg (75-100); ARTERIAL BLOOD GAS pH 7.23 (7.35-7.45); HCO3- 9.6 (22-28); HGB O2 SAT 89.1 g/dF (94-100); Methhemoglobin 0.7 % (1.4-1.5)
[2021-03-17 20:56] LABS: ABG SITE RIGHT RADIAL; ALLEN TEST OK? YES; CARBOXYHEMOGLOBIN 10.2 % THgb (0.0-6.9)
[2021-03-17 20:58] LABS: Hematocrit 33.7 % (42-50); Hemoglobin 10.5 gm/dl (12.5-18.0); Mean Cell Volume 101.2 fl (78-100); Mean Corpuscular Hemoglobin 31.5 pg (26-32); Mean Corpuscular Hgb Concent. 31.2 g/dl (32-36); Mean Platelet Volume 10.4 fl (7.5-11.0); Platelet Count 171 K/mm3 (150-450); Red Blood Count 3.33 M/mm3 (4.1-5.6); White Blood Count 10.4 K/mm3 (4.0-10.5)
[2021-03-17 21:23] LABS: ALBUMIN 3.1 g/dL (3.5-5.0); ANION GAP 24.8 MEQ/L (5-15); BILIRUBIN,TOTAL 0.3 mg/dL (0.2-1.3); Calcium 8.1 mg/dL (8.4-10.2); Creatinine 1 1.58 mg/dL (0.66-1.25); EST GLOMERULAR FILTRATION RATE 46.6 ML/MIN; Potassium 4.4 mmol/L (3.5-5.1); Total Protein 5.3 g/dL (6.3-8.2)
[2021-03-17 21:40] LABS: ABO TYPING O; Antibody Screen NEGATIVE (NEGATIVE); RH TYPING POSITIVE
[2021-03-17] MEDS ORDERED: Ativan 2 MG/1 ML VIAL IM ONE (21:54)
[2021-03-17 21:55] LABS: Eosinophil 2 % (0.00-3.0); Lymphocytes 45 % (24-44); Monocyte 8 % (0.0-12.0); Neutrophils 45 % (36.-66.); Platelet Estimate NORMAL (NORMAL); Total Cells Counted 100
[2021-03-17] MEDS ORDERED: Ativan 2 MG/1 ML VIAL ONE (21:55)
[2021-03-17] MEDS ORDERED: Ativan 2 MG/1 ML VIAL IV ONE (22:13)
[2021-03-17] MEDS ORDERED: Merrem 1 GM 1 G in Sodium Chloride 100ML MINI-BAG PLUS 100 ML IV ONE (22:20)
[2021-03-17] MEDS ORDERED: Lasix 40 MG/4 ML IV ONE (22:23)
[2021-03-17] MEDS ORDERED: solu-MEDROL 125 MG, Sterile H2O 10 ml 2 ML IV ONE ×2 (22:24)
[2021-03-18 01:25] VITALS: BP 80/52; PULSE 128
--- NOTE | 2021-03-18 08:59 | XRAY ---
Indication: Short of breath. Comparison: December 03, 2020. Portable chest slightly rotated with new moderate left base infiltrate/atelectasis/effusion. Right lung clear. Heart borderline enlarged. Bony thorax intact again with osteopenia and degenerative changes.
--- NOTE | 2021-03-18 08:59 | XRAY ---
Indication: Abdomen pain. Short of breath. Multiple contiguous axial images obtained through the abdomen and pelvis without contrast. Comparison: None Study is degraded by respiration artifact. Lung bases demonstrates pulmonary emphysema with scattered fibrosis/scarring and incompletely visualized large left effusion with mild left lower lobe compressive atelectasis. Heart is not enlarged. Visualized esophagus demonstrates moderate circumferential wall thickening, either esophagitis versus malignancy. Noncontrasted stomach and bowel loops appear nonobstructed. There is moderate diffuse scattered colonic fecal debris throughout. No obvious free fluid/free air. Enlarged prostate gland impresses on the base of the bladder. Remaining liver, gallbladder, pancreas, spleen, adrenal glands, kidneys, ureters, and bladder appear unremarkable for noncontrast exam. Moderate scattered aortoiliac calcifications. Abdominal aorta is tortuous/ectatic with 3.2 cm distal fusiform AAA. Osseous structures demineralized with mild/moderate multilevel thoracolumbar degenerative spondylosis, and mild levoscoliosis centered at L2.. Also T11-L5 compression fractures of uncertain chronicity, greatest involving L3 with 75% height loss. Impression: 1. Diffuse respiration artifact. 2. Incompletely visualized large left effusion without cardiomegaly. 3. Diffuse fecal stasis. 4. Abnormal esophageal circumferential wall thickening. Rule out esophagitis versus malignancy. 5. Scattered arteriosclerotic disease with 3.2 cm distal AAA. 6. Multilevel thoracolumbar compression fractures of uncertain chronicity. 7. Incidental enlarged prostate gland, osteopenia, multilevel degenerative spondylosis, and levoscoliosis.
--- NOTE | 2021-03-18 09:01 | XRAY ---
Indication: Endotracheal tube placement. Respiratory distress. Coded. Comparison: Taken earlier in the day. Portable chest demonstrates new endotracheal tube tip 5.5 cm above [place]. New near complete opacification left lung presumed combination effusion and atelectasis. Remaining visualized right lung and heart unremarkable.
== END 2021-03-17 23:15 | disposition expired ==
LOC: ED 19:55
DX: J90 Pleural effusion, not elsewhere classified (principal); R79.1 Abnormal coagulation profile; R00.0 Tachycardia, unspecified; I95.9 Hypotension, unspecified; J44.9 Chronic obstructive pulmonary disease, unspecified; I10 Essential (primary) hypertension; R06.02 Shortness of breath; Z79.899 Other long term (current) drug therapy; Z79.891 Long term (current) use of opiate analgesic
CPT/HCPCS: 36000; 36415; 36600; 71045; 74176; 80053; 82150; 82375; 82803; 83605; 83690; 83880; 84484; 85025; 85379; 86850; 86900; 86901; 93005; 94002; 96372; 96374; 99284; 99291; 99292; J0171; J2060